=== PATIENT | female | born 1950 | race American Indian/Alaskan Native ===

== ENCOUNTER 2017-04-27 13:26 | Outpatient (CLI) | payer MEDICARE, OTHER ==
--- NOTE | 2017-04-27 16:25 | Mammography Report ---
Screening mammogram: There is a heterogeneous fibroglandular pattern which is somewhat denser in the upper outer left breast than elsewhere in either breast. No focal mass and no architectural distortion noted. Scattered groupings of microcalcifications as well as singular calcifications are present in both breasts. These findings are all unchanged compared to her prior study in March 2015. No currently suspicious findings. CAD used. Impression: Stable breast pattern. Recommendation: Annual mammogram followup. BI-RADS CATEGORY: 2 = Benign ACR BI-RADS MAMMOGRAPHIC CODES: 0 = Needs additional imaging evaluation; 1 = Negative; 2 = Benign; 3 = Probably benign; 4 = Suspicious; 5 = Malignant; 6 = Known biopsy-proven malignancy COMMENT: 1. Dense breast tissue, i.e., adenosis, fibrocystic changes, etc., may obscure an underlying neoplasm. 2. Approximately 10% of cancers are not detected with mammography. 3. A negative mammography report should not delay biopsy if a clinically suspicious mass is present.
== END 2017-04-27 13:27 | disposition home or self-care (01) ==
LOC: MAMMO 13:26
PROVIDERS: ATTEND Family Medicine
DX: Z12.31 Encounter for screening mammogram for malignant neoplasm of breast (principal)
CPT/HCPCS: 77067; G0202

== ENCOUNTER 2019-01-28 18:35 | Inpatient (IN) | payer MEDICARE, OTHER ==
--- NOTE | 2019-01-28 18:43 | Event Note ---
ED Screening Note Date of service: 01/28/19 Time: 18:39 ED Screening Note: This is a 69 y.o. F. that presents to the ER nauseous, numbness on right side of face, headache, and disoriented. Her neighbor think she is having a CVA. Reports changes since 1600 today. This initial assessment/diagnostic orders/clinical plan/treatment(s) is/are subject to change based on patients health status, clinical progression and re- assessment by fellow clinical providers in the ED. Further treatment and workup at subsequent clinical providers discretion. Patient/guardian urged not to elope from the ED as their condition may be serious if not clinically assessed and managed. Initial orders include: Labs, ekg, & CT of head
--- NOTE | 2019-01-28 18:46 | Emergency Department Report ---
ED Neuro Deficit HPI - General Chief Complaint: Neuro Symptoms/Deficit Stated Complaint: R SIDE NUMBNESS/SLURRED SPEECH/DISORIENTATION Time Seen by Provider: 01/28/19 18:45 Source: patient Mode of arrival: Ambulatory Limitations: No Limitations - History of Present Illness Initial Comments: Patient is a 69-year-old female that presents to the ER with complaints of nauseous, numbness on right side of face, headache, and confusion. Patient also complains of difficulty speaking and slurred speech. Patient states she has been off her blood pressure medication for 2 years. Patient states she used to take losartan. Patient denies chest pain shortness of breath. Patient states that her symptoms are worsening. Last known well time 1600 today. -: Sudden Location: speech, left face Presenting Symptoms: Present: Sudden, Severe Headache, Facial Droop/Numbness, Unable to Speak Clearly History of same: No Place: home Severity: severe Quality: numb Improves With: none Worsens With: none On Anticoagulants: No Context: sudden onset Associated Symptoms: confusion, headaches, malise, weakness. denies: chest pain, cough, diaphoresis, fever/chills, loss of appetite, vertigo, seizures, shortness of breath, syncope Treatments Prior to Arrival: none - Related Data Home Medications: Previous Rx's Medication Instructions Recorded Last Taken Type Ondansetron [Zofran Odt] 4 mg PO Q8HR PRN #15 tab.rapdis 09/02/16 Unknown Rx fentaNYL [Fentanyl] 1 each TD Q72HR #5 patch.td72 09/02/16 Unknown Rx oxyCODONE [roxiCODONE] 5 mg PO Q6HR PRN #20 tablet 09/02/16 Unknown Rx Allergies/Adverse Reactions: Allergies Allergy/AdvReac Type Severity Reaction Status Date / Time codeine Allergy HALLUCINATI Verified 09/01/16 18:17 ONS ED Review of Systems ROS: Stated complaint: R SIDE NUMBNESS/SLURRED SPEECH/DISORIENTATION Other details as noted in HPI Constitutional: weakness. denies: chills, fever Eyes: denies: eye pain, eye discharge, vision change ENT: denies: ear pain, throat pain Respiratory: denies: cough, shortness of breath, wheezing Cardiovascular: denies: chest pain, palpitations Endocrine: no symptoms reported Gastrointestinal: nausea. denies: abdominal pain, vomiting, diarrhea Genitourinary: denies: urgency, dysuria, discharge Musculoskeletal: denies: back pain, joint swelling, arthralgia Skin: denies: rash, lesions Neurological: headache, weakness, numbness, confusion Psychiatric: denies: anxiety, depression Hematological/Lymphatic: denies: easy bleeding, easy bruising ED Past Medical Hx - Past Medical History Previous Medical History?: Yes Hx Hypertension: Yes - Surgical History Past Surgical History?: Yes Additional Surgical History: colon surgery. TUBAL LIGATION. HYSTERECTOMY. TONSILLECTOMY - Family History Family history: no significant - Social History Smoking Status: Never Smoker Substance Use Type: None - Medications Home Medications: Home Medications Medication Instructions Recorded Confirmed Last Taken Type Ondansetron [Zofran Odt] 4 mg PO Q8HR PRN #15 tab.rapdis 09/02/16 Unknown Rx fentaNYL [Fentanyl] 1 each TD Q72HR #5 patch.td72 09/02/16 Unknown Rx oxyCODONE [roxiCODONE] 5 mg PO Q6HR PRN #20 tablet 09/02/16 Unknown Rx ED Neuro Physical Exam - General Limitations: No Limitations General appearance: alert, in no apparent distress Suspected Stroke: Yes - Head Head exam: Present: atraumatic, normocephalic - Eye Eye exam: Present: normal appearance, PERRL Pupils: Present: normal accommodation - ENT ENT exam: Present: mucous membranes moist - Neck Neck exam: Present: normal inspection - Respiratory Respiratory exam: Present: normal lung sounds bilaterally. Absent: respiratory distress, wheezes, rales, rhonchi - Cardiovascular Cardiovascular Exam: Present: regular rate, normal rhythm. Absent: systolic murmur, diastolic murmur, rubs, gallop - GI/Abdominal GI/Abdominal exam: Present: soft, normal bowel sounds. Absent: distended, tenderness, guarding - Rectal Rectal exam: Present: deferred - Extremities Exam Extremities exam: Present: normal inspection, full ROM - Back Exam Back exam: Present: normal inspection - Neurological Exam Neurological exam: Present: alert, oriented X3 - NIHSS Assessment Interval: Baseline 1a. Level of Consciousness: alert/keenly responsive 1b. LOC Questions: answers both correctly 1c. LOC Commands: performs tasks correctly 2. Best Gaze: normal 3. Visual: no visual loss 4. Facial Palsy: normal symmetrical movement 5b. Motor Arm Right: no drift 5a. Motor Arm Left: no drift 6a. Motor Leg Left: no drift 6b. Motor Leg Right: no drift 7. Limb Ataxia: absent 8. Sensory: normal 9. Best Language: mild/moderate aphasia 10. Dysarthria: mild/moderate dysarthria 11. Extinction/Inattention: no abnormality Total Score: 2 Stroke Severity: Minor Stroke - Psychiatric Psychiatric exam: Present: normal affect, normal mood - Skin Skin exam: Present: warm, dry, intact, normal color. Absent: rash ED Course Vital Signs 01/28/19 01/28/19 01/28/19 18:39 19:08 19:15 Temperature 97.8 F Pulse Rate 69 58 L Respiratory 20 22 Rate Blood Pressure 170/82 209/84 O2 Sat by Pulse 99 98 99 Oximetry 01/28/19 01/28/19 01/28/19 19:30 19:45 20:00 Temperature Pulse Rate 59 L 80 85 Respiratory 28 H 20 18 Rate Blood Pressure 201/110 202/86 199/76 O2 Sat by Pulse 100 100 99 Oximetry 01/28/19 01/28/19 01/28/19 20:15 20:49 21:01 Temperature Pulse Rate 83 86 97 H Respiratory 15 13 Rate Blood Pressure 199/76 169/70 154/84 O2 Sat by Pulse 100 97 Oximetry 01/28/19 01/28/19 01/28/19 21:15 21:30 21:45 Temperature Pulse Rate 82 89 76 Respiratory 16 13 13 Rate Blood Pressure 174/82 126/73 139/89 O2 Sat by Pulse 97 95 95 Oximetry 01/28/19 01/28/19 01/28/19 21:55 22:00 22:15 Temperature Pulse Rate 82 76 Respiratory 18 15 15 Rate Blood Pressure 159/85 142/81 O2 Sat by Pulse 90 95 Oximetry 01/28/19 01/28/19 01/28/19 22:25 22:30 22:45 Temperature Pulse Rate 75 Respiratory 18 11 L 18 Rate Blood Pressure 136/75 125/63 O2 Sat by Pulse 88 96 Oximetry 01/28/19 01/28/19 01/28/19 23:00 23:15 23:30 Temperature Pulse Rate Respiratory 17 13 15 Rate Blood Pressure 138/70 123/86 148/76 O2 Sat by Pulse 92 97 93 Oximetry 01/28/19 01/29/19 01/29/19 23:45 00:00 00:15 Temperature Pulse Rate Respiratory 19 17 18 Rate Blood Pressure 133/70 123/78 114/69 O2 Sat by Pulse 90 89 96 Oximetry 01/29/19 01/29/19 01/29/19 00:30 00:45 01:01 Temperature Pulse Rate 53 L 67 Respiratory 17 14 16 Rate Blood Pressure 114/75 126/79 115/78 O2 Sat by Pulse 96 97 96 Oximetry 01/29/19 01:15 Temperature Pulse Rate 54 L Respiratory 16 Rate Blood Pressure 168/77 O2 Sat by Pulse 93 Oximetry - Reevaluation(s) Reevaluation #1: I discussed all results with patient. Patient will be admitted to the hospitalist service. Patient agrees with plan of care and admission. Blood pressure has improved. She'll be given Dilaudid for her headache. 01/28/19 21:35 - Consultations Consultation #1: Neurologist consult. 01/28/19 18:35 Neurologist does not recommend TPA and recommends admission for further evaluation and treatment. 01/28/19 19:35 Consultation #2: Hospitalist consult for admission. Hospitalist to admit patient and assume care of patient. 01/28/19 21:36 - Lab Data Result diagrams: 01/28/19 19:15 01/28/19 19:15 Lab Results 01/28/19 01/28/19 01/28/19 Range/Units 19:15 19:15 19:15 WBC 7.4 (4.5-11.0) K/mm3 RBC 5.52 H (3.65-5.03) M/mm3 Hgb 15.2 H (10.1-14.3) gm/dl Hct 45.1 H (30.3-42.9) % MCV 82 (79-97) fl MCH 28 (28-32) pg MCHC 34 (30-34) % RDW 14.2 (13.2-15.2) % Plt Count 336 (140-440) K/mm3 Lymph % (Auto) 35.9 H (13.4-35.0) % [place] % (Auto) 7.3 (0.0-7.3) % Eos % (Auto) 1.3 (0.0-4.3) % Baso % (Auto) 1.4 (0.0-1.8) % Lymph # 2.6 (1.2-5.4) K/mm3 [place] # 0.5 (0.0-0.8) K/mm3 Eos # 0.1 (0.0-0.4) K/mm3 Baso # 0.1 (0.0-0.1) K/mm3 Seg Neutrophils % 54.1 (40.0-70.0) % Seg Neutrophils # 4.0 (1.8-7.7) K/mm3 PT 12.5 (12.2-14.9) Sec. INR 0.96 (0.87-1.13) APTT 24.6 (24.2-36.6) Sec. Thrombin Time (15.1-19.6) Sec. Sodium 139 (137-145) mmol/L Potassium 4.7 (3.6-5.0) mmol/L Chloride 98.6 (98-107) mmol/L Carbon Dioxide 24 (22-30) mmol/L Anion Gap 21 mmol/L BUN 16 (7-17) mg/dL Creatinine 1.0 (0.7-1.2) mg/dL Estimated GFR > 60 ml/min BUN/Creatinine Ratio 16 % Glucose 90 (65-100) mg/dL Calcium 10.6 H (8.4-10.2) mg/dL Total Bilirubin (0.1-1.2) mg/dL Direct Bilirubin (0-0.2) mg/dL Indirect Bilirubin mg/dL AST (5-40) units/L ALT (7-56) units/L Alkaline Phosphatase (35-129) units/L Troponin T < 0.010 (0.00-0.029) ng/mL Total Protein (6.3-8.2) g/dL Albumin (3.9-5) g/dL Albumin/Globulin Ratio % Plasma/Serum Alcohol (0-0.07) % 01/28/19 01/28/19 01/28/19 Range/Units 19:15 19:15 19:15 WBC (4.5-11.0) K/mm3 RBC (3.65-5.03) M/mm3 Hgb (10.1-14.3) gm/dl Hct (30.3-42.9) % MCV (79-97) fl MCH (28-32) pg MCHC (30-34) % RDW (13.2-15.2) % Plt Count (140-440) K/mm3 Lymph % (Auto) (13.4-35.0) % [place] % (Auto) (0.0-7.3) % Eos % (Auto) (0.0-4.3) % Baso % (Auto) (0.0-1.8) % Lymph # (1.2-5.4) K/mm3 [place] # (0.0-0.8) K/mm3 Eos # (0.0-0.4) K/mm3 Baso # (0.0-0.1) K/mm3 Seg Neutrophils % (40.0-70.0) % Seg Neutrophils # (1.8-7.7) K/mm3 PT (12.2-14.9) Sec. INR (0.87-1.13) APTT (24.2-36.6) Sec. Thrombin Time 16.8 (15.1-19.6) Sec. Sodium (137-145) mmol/L Potassium (3.6-5.0) mmol/L Chloride (98-107) mmol/L Carbon Dioxide (22-30) mmol/L Anion Gap mmol/L BUN (7-17) mg/dL Creatinine (0.7-1.2) mg/dL Estimated GFR ml/min BUN/Creatinine Ratio % Glucose (65-100) mg/dL Calcium (8.4-10.2) mg/dL Total Bilirubin 0.40 (0.1-1.2) mg/dL Direct Bilirubin < 0.2 (0-0.2) mg/dL Indirect Bilirubin 0.2 mg/dL AST 31 (5-40) units/L ALT 14 (7-56) units/L Alkaline Phosphatase 88 (35-129) units/L Troponin T (0.00-0.029) ng/mL Total Protein 9.1 H (6.3-8.2) g/dL Albumin 5.3 H (3.9-5) g/dL Albumin/Globulin Ratio 1.4 % Plasma/Serum Alcohol < 0.01 (0-0.07) % - EKG Data -: EKG Interpreted by Me EKG shows normal: sinus rhythm, axis, intervals, QRS complexes, ST-T waves Rate: normal - Radiology Data Radiology results: report reviewed, image reviewed interpreted by me: Negative head CT or acute finding Report reviewed and radiologist reads as a negative head CT for acute findings. CTA neck with and without contrast CLINICAL HISTORY: Weakness, cerebrovascular accident. Technique: Multiple contiguous postcontrast axial CT images of the neck were obtained at 0.63 mm intervals. 3 plane MIP reconstructions were produced. Precontrast localizing images were also performed. All CT scans at this location are performed using the CT dose reduction for ALARA by means of automated exposure control. FINDINGS: There is atherosclerotic plaque involving the proximal right ICA with mild, 10-20% stenosis by NASCET criteria. Otherwise, the visualized right carotid arteries are unremarkable. There is minimal plaque involving the proximal left ICA without significant stenosis at by NASCET criteria. There is also mild plaque along the mid to distal left common carotid artery without significant stenosis. 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 The right vertebral artery is dominant without significant stenosis at. There is a small focus of calc ification adjacent to the origin. This also mild calcification near the origin of the left subclavian artery without significant stenosis. There is a disc protrusion at projected the C5-6 level which appears to mildly deform the ventral cord. All CT scans at this location are performed using the CT dose reduction for ALARA by means of automated exposure control. IMPRESSION: There is milder atherosclerotic plaque involving proximal right ICA with mild, 10-20% stenosis by NASCET criteria. 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 CTA head with and without IV contrast. CLINICAL HISTORY: Weakness, possible cerebrovascular accident. Technique: Multiple contiguous postcontrast CT images of the head were obtained at 0.63 mm intervals.3 plane MIP reconstructions were obtained. Precontrast localizing images were also performed. CT scans at this location are performed using the CT dose reduction for ALARA by means of automated exposure control. FINDINGS: No previous exams available for comparison. There is small caliber of the distal left vertebral artery which appears reflect developmental hypoplasia. 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 There is no significant focal stenosis involving the anterior circulation vessels by NASCET criteria. There is no clear CT evidence of intracranial aneurysm. The dural venous sinuses opacify with contrast. 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 There is no significant focal stenosis involving intracranial vessels. The study was specified as stat and dictated on an emergent basis once fully completed - Medical Decision Making Patient is a 69-year-old female presents emergency room with neurologic complaints. Patient had a code stroke ran. Patient sees to the head negative. Patient had his CT A of the head and neck and was negative for large vessel occlusion. Neurology was consult and early in the patient's ER stay. Patient's labs unremarkable. Patient found to have elevated blood pressure and placed on a nicardipine drip. Patient's EKG reviewed. [facility]. - Differential Diagnosis CVA. Encephalopathy. Hypertensive emergency. Critical Care Time: Yes Critical care attestation.: If time is entered above; I have spent that time in minutes in the direct care of this critically ill patient, excluding procedure time. Critical Care Time: 45 minutes ED Disposition Clinical Impression: Encephalopathy, Weakness, Hypertensive urgency, malignant, Slurred speech, Difficulty speaking, Numbness of face Headache Qualifiers: Headache type: unspecified Headache chronicity pattern: acute headache Intractability: not intractable Qualified Code(s): R51 - Headache Disposition: DC-09 OP ADMIT IP TO THIS HOSP Is pt being admited?: Yes Does the pt Need Aspirin: No Condition: Critical Time of Disposition: 21:37
--- NOTE | 2019-01-28 19:05 | Emergency Department Report ---
ED Neuro Deficit HPI - General Chief Complaint: Neuro Symptoms/Deficit Stated Complaint: R SIDE NUMBNESS/SLURRED SPEECH/DISORIENTATION Time Seen by Provider: 01/28/19 18:45 Source: patient Mode of arrival: Ambulatory Limitations: No Limitations - History of Present Illness Initial Comments: [facility] Date of service: 01/28/2019 Impression: 69 year old female who presents with right side tingling and altered mental status. Patient's presentation is more consistent with a hypertensive encephalopathy or possibly PRES. Not a tpa candidate due to: NIHSS of 1 for mild right leg drift and symptoms more consistent with a hypertensive encephalopathy or PRES. Does not meet LVO screening criteria (no aphasia, neglect, gaze deviation, dense hemiparesis, or visual field deficits on exam), therefore advanced thrombectomy is not indicated Comments: Door Time: 18:35 [employer] contacted: 18:48 [employer] at bedside: 18:55 NIHSS assessment start time (time the consultation begins): 19:00 Last known well time (LKW): 16:00 Recommendations: CTA head and neck to assess posterior circulation Start antiplatelet if no obvious contraindication Stroke protocol admission/ orderset suggested with placement on stroke floor tele monitoring Bedside swallow evaluation HOB less than 30 degrees IV Fluid hydration with NS Euglycemia avoid hyperthermia, PRN acetaminophen dvt ppx Consider inpatient neurology consultation Discussed with ED MD Please call with questions CC: STroke alert History of Present Illness Patient is a69 year old female who presents to the ED because of right side tingling. Patient states she was outside talking with her friend when she sudd enly became very confused and had tingling and numbness on her right side. On exam patient appeared very encephalopathic but had stuttering speech. She was fully oriented and did not have any focal findings except for difficulty lifting her right leg. She did not have any noticeable aphasia and she reported equal sensation throughout. Diagnostic: CT Brain w/o contrast -- radiology read -- no acute process (images unavailable for viewing) Exam: Mental Status: Awake, alert, oriented Naming: Intact Repetition: Intact Speech: fluent Cranial Nerves: Pupils: Equal round and reactive to light Extraocular movements: Intact in all cardinal gaze Ptosis: Absent Visual palacio: Intact to finger counting Facial sensation: Intact to pin and light touch Facial movements: Intact and symmetric Motor Exam: right leg drift -- will hold with knee up against gravity without falling to the side. Tremor/Abnormal Movements: Resting tremor: Absent Intention tremor: Absent Postural tremor: Absent Sensory Exam: Light touch: Intact Pinprick: Intact Coordination: Finger to nose: Intact Heel to ewing: Intact NIHSS score: 1 Medical Decision Making: - Extensive number of diagnosis or management options are considered above. - Extensive amount of complex data reviewed. - High risk of complication and/or morbidity or mortality are associated with differential diagnostic considerations above. - There may be Uncertain outcome and increased probability of prolonged f unctional impairment or high probability of severe prolonged functional impairment associated with some of these differential diagnosis. Medical Data Reviewed: 1.Data reviewed include clinical labs, radiology,Medical Tests; 2.Tests results discussed w/performing or interpreting physician; 3.Obtaining/reviewing old medical records; 4.Obtaining case history from another source; 5.Independent review of image, tracing or specimen. Patient was informed the Neurology Consult would happen via TeleHealth consult by way of interactive audio and video telecommunications and consented to receiving care in this manner. - Related Data Home Medications: Previous Rx's Medication Instructions Recorded Last Taken Type Ondansetron [Zofran Odt] 4 mg PO Q8HR PRN #15 tab.rapdis 09/02/16 Unknown Rx fentaNYL [Fentanyl] 1 each TD Q72HR #5 patch.td72 09/02/16 Unknown Rx oxyCODONE [roxiCODONE] 5 mg PO Q6HR PRN #20 tablet 09/02/16 Unknown Rx Allergies/Adverse Reactions: Allergies Allergy/AdvReac Type Severity Reaction Status Date / Time codeine Allergy HALLUCINATI Verified 09/01/16 18:17 ONS ED Review of Systems ROS: Stated complaint: R SIDE NUMBNESS/SLURRED SPEECH/DISORIENTATION Other details as noted in HPI ED Past Medical Hx - Past Medical History Previous Medical History?: Yes Hx Hypertension: Yes - Surgical History Past Surgical History?: Yes Additional Surgical History: colon surgery. TUBAL LIGATION. HYSTERECTOMY. TONSILLECTOMY - Social History Smoking Status: Never Smoker Substance Use Type: None - Medications Home Medications: Home Medications Medication Instructions Recorded Confirmed Last Taken Type Ondansetron [Zofran Odt] 4 mg PO Q8HR PRN #15 tab.rapdis 09/02/16 Unknown Rx fentaNYL [Fentanyl] 1 each TD Q72HR #5 patch.td72 09/02/16 Unknown Rx oxyCODONE [roxiCODONE] 5 mg PO Q6HR PRN #20 tablet 09/02/16 Unknown Rx ED Neuro Physical Exam - General Limitations: No Limitations Suspected Stroke: Yes - NIHSS Assessment Interval: Baseline 1a. Level of Consciousness: alert/keenly responsive 1b. LOC Questions: answers both correctly 1c. LOC Commands: performs tasks correctly 2. Best Gaze: normal 3. Visual: no visual loss 4. Facial Palsy: normal symmetrical movement 5b. Motor Arm Right: no drift 5a. Motor Arm Left: no drift 6a. Motor Leg Left: no drift 6b. Motor Leg Right: drift 7. Limb Ataxia: absent 8. Sensory: normal 9. Best Language: no aphasia 10. Dysarthria: normal 11. Extinction/Inattention: no abnormality Total Score: 1 Stroke Severity: Minor Stroke ED Course Vital Signs 01/28/19 18:39 Temperature 97.8 F Pulse Rate 69 Respiratory 20 Rate Blood Pressure 170/82 O2 Sat by Pulse 99 Oximetry - Lab Data Result diagrams: 01/28/19 19:15 01/28/19 19:15 Lab Results 01/28/19 01/28/19 01/28/19 Range/Units 19:15 19:15 19:15 WBC 7.4 (4.5-11.0) K/mm3 RBC 5.52 H (3.65-5.03) M/mm3 Hgb 15.2 H (10.1-14.3) gm/dl Hct 45.1 H (30.3-42.9) % MCV 82 (79-97) fl MCH 28 (28-32) pg MCHC 34 (30-34) % RDW 14.2 (13.2-15.2) % Plt Count 336 (140-440) K/mm3 Lymph % (Auto) 35.9 H (13.4-35.0) % [place] % (Auto) 7.3 (0.0-7.3) % Eos % (Auto) 1.3 (0.0-4.3) % Baso % (Auto) 1.4 (0.0-1.8) % Lymph # 2.6 (1.2-5.4) K/mm3 [place] # 0.5 (0.0-0.8) K/mm3 Eos # 0.1 (0.0-0.4) K/mm3 Baso # 0.1 (0.0-0.1) K/mm3 Seg Neutrophils % 54.1 (40.0-70.0) % Seg Neutrophils # 4.0 (1.8-7.7) K/mm3 PT 12.5 (12.2-14.9) Sec. INR 0.96 (0.87-1.13) APTT 24.6 (24.2-36.6) Sec. Thrombin Time (15.1-19.6) Sec. Sodium 139 (137-145) mmol/L Chloride 98.6 (98-107) mmol/L Carbon Dioxide 24 (22-30) mmol/L BUN 16 (7-17) mg/dL Creatinine 1.0 (0.7-1.2) mg/dL Estimated GFR > 60 ml/min BUN/Creatinine Ratio 16 % Glucose 90 (65-100) mg/dL Calcium 10.6 H (8.4-10.2) mg/dL Troponin T < 0.010 (0.00-0.029) ng/mL Plasma/Serum Alcohol (0-0.07) % 01/28/19 01/28/19 Range/Units 19:15 19:15 WBC (4.5-11.0) K/mm3 RBC (3.65-5.03) M/mm3 Hgb (10.1-14.3) gm/dl Hct (30.3-42.9) % MCV (79-97) fl MCH (28-32) pg MCHC (30-34) % RDW (13.2-15.2) % Plt Count (140-440) K/mm3 Lymph % (Auto) (13.4-35.0) % [place] % (Auto) (0.0-7.3) % Eos % (Auto) (0.0-4.3) % Baso % (Auto) (0.0-1.8) % Lymph # (1.2-5.4) K/mm3 [place] # (0.0-0.8) K/mm3 Eos # (0.0-0.4) K/mm3 Baso # (0.0-0.1) K/mm3 Seg Neutrophils % (40.0-70.0) % Seg Neutrophils # (1.8-7.7) K/mm3 PT (12.2-14.9) Sec. INR (0.87-1.13) APTT (24.2-36.6) Sec. Thrombin Time 16.8 (15.1-19.6) Sec. Sodium (137-145) mmol/L Chloride (98-107) mmol/L Carbon Dioxide (22-30) mmol/L BUN (7-17) mg/dL Creatinine (0.7-1.2) mg/dL Estimated GFR ml/min BUN/Creatinine Ratio % Glucose (65-100) mg/dL Calcium (8.4-10.2) mg/dL Troponin T (0.00-0.029) ng/mL Plasma/Serum Alcohol < 0.01 (0-0.07) % Critical care attestation.: If time is entered above; I have spent that time in minutes in the direct care of this critically ill patient, excluding procedure time. ED Disposition Clinical Impression: Encephalopathy Disposition: 09 OP ADMIT IP TO THIS HOSP Is pt being admited?: Yes Does the pt Need Aspirin: Yes Condition: Stable Referrals: RALPH SERRANO MD [Primary Care Provider] - 3-5 Days
[2019-01-28 19:26] LABS: Basophils # (Auto) 0.1 K/mm3 (0.0-0.1); Basophils % (Auto) 1.4 % (0.0-1.8); Eosinophils # (Auto) 0.1 K/mm3 (0.0-0.4); Eosinophils % (Auto) 1.3 % (0.0-4.3); Hematocrit 45.1 % (30.3-42.9); Hemoglobin 15.2 gm/dl (10.1-14.3); Lymphocytes # (Auto) 2.6 K/mm3 (1.2-5.4); Lymphocytes % (Auto) 35.9 % (13.4-35.0); Mean Corpuscular HGB Conc 34 % (30-34); Mean Corpuscular Volume 82 fl (79-97); Monocytes # (Auto) 0.5 K/mm3 (0.0-0.8); Monocytes % (Auto) 7.3 % (0.0-7.3); Platelet Count 336 K/mm3 (140-440); Red Blood Count 5.52 M/mm3 (3.65-5.03); Red Cell Distribution Width 14.2 % (13.2-15.2)
[2019-01-28 19:36] LABS: INR 0.96 (0.87-1.13)
[2019-01-28 19:37] LABS: Partial Thromboplastin Time 24.6 Sec. (24.2-36.6)
[2019-01-28 19:47] LABS: BUN/Creatinine Ratio 16; Blood Urea Nitrogen 16 mg/dL (7-17); Calcium 10.6 mg/dL (8.4-10.2); Hemolysis Index 143
--- NOTE | 2019-01-28 19:47 | Cat Scan Report ---
CT head without contrast CLINICAL HISTORY: Cerebrovascular accident. FINDINGS: No previous CT exams available for comparison. The brain appears to demonstrate appropriate attenuation for age. There is no clear CT evidence of acute intracranial hemorrhage or significant m ass effect at. There is mild cerebral atrophy. The ventricular system is correspondingly appropriate in size and configuration. The visualized paranasal sinuses are clear. All CT scans at this location are performed using the CT dose reduction for ALARA by means of automated exposure control. IMPRESSION: There is no CT evidence of acute intracranial process. The findings were called emergently to the ER at the time the study was being completed per the code stroke protocol. Signer Name: Calderon De La Cruz MD Signed: 01/28/2019 7:43 PM Workstation Name: [id number]
[2019-01-28 19:51] LABS: Alanine Aminotransferase 14 units/L (7-56); Albumin 5.3 g/dL (3.9-5)
[2019-01-28 19:53] LABS: Bilirubin,Direct < 0.2 mg/dL (0-0.2)
[2019-01-28] MEDS ORDERED: CARDENE 50 MG in NACL 0.9% 250ML 230 ML IV SCH (20:00)
[2019-01-28] MEDS ORDERED: DILAUDID ONE (21:23)
[2019-01-28] MEDS ORDERED: DILAUDID IV ONE (21:36)
--- NOTE | 2019-01-28 21:53 | Cat Scan Report ---
CTA neck with and without contrast CLINICAL HISTORY: Weakness, cerebrovascular accident. Technique: Multiple contiguous postcontrast axial CT images of the neck were obtained at 0.63 mm inte rvals. 3 plane MIP reconstructions were produced. Precontrast localizing images were also performed. All CT scans at this location are performed using the CT dose reduction for ALARA by means of automat ed exposure control. FINDINGS: There is atherosclerotic plaque involving the proximal right ICA with mild, 10-20% stenosis by NASCET criteria. Otherwise, the visualized right carotid arteries are unremarkable. There is minimal plaque involving the proximal left ICA without significant stenosis at by NASCET cri teria. There is also mild plaque along the mid to distal left common carotid artery without significa nt stenosis. 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 The right vertebral artery is meliton nant without significant stenosis at. There is a small focus of calcification adjacent to the origin. This also mild calcification near the origin of the left subclavian artery without significant steno sis. There is a disc protrusion at projected the C5-6 level which appears to mildly deform the ventral cor d. All CT scans at this location are performed using the CT dose reduction for ALARA by means of auto mated exposure control. IMPRESSION: There is milder atherosclerotic plaque involving proximal right ICA with mild, 10-20% stenosis by DANDY CET criteria. 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 The study was specified as stat and dictated emergently once fully completed. Signer Name: Calderon De La Cruz MD Signed: 01/28/2019 9:48 PM Workstation Name: [id number]
[2019-01-28] MEDS ORDERED: ZOFRAN IV ONE (21:58)
--- NOTE | 2019-01-28 22:00 | Cat Scan Report ---
CTA head with and without IV contrast. CLINICAL HISTORY: Weakness, possible cerebrovascular accident. Technique: Multiple contiguous postcontrast CT images of the head were obtained at 0.63 mm intervals. 3 plane MIP reconstructions were obtained. Precontrast localizing images were also performed. CT scan s at this location are performed using the CT dose reduction for [employer] by means of automated exposure control. FINDINGS: No previous exams available for comparison. There is small caliber of the distal left verte bral artery which appears reflect developmental hypoplasia. 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 There is no significant focal stenosis involving the anter ior circulation vessels by NASCET criteria. There is no clear CT evidence of intracranial aneurysm. T he dural venous sinuses opacify with contrast. 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 There is no significant focal stenosis involving intracranial vessels. The study was specified as stat and dictated on an emergent basis once fully completed. Signer Name: Calderon De La Cruz MD Signed: 01/28/2019 9:55 PM Workstation Name: [id number]
--- NOTE | 2019-01-28 22:14 | History and Physical Report ---
History of Present Illness Date of examination: 01/28/19 History of present illness: 69-year-old history of hypertension, colon cancer comes emergency room with complaints of slurred speech, generalized weakness that lasted for about an hour. Also complaining of headache, bitemporal, she has not taken her antihypertensive for 2 weeks. She was started on a Cardene drip in the emergency room Review Of Systems: Constitutional: no weight loss, fever, chills Ears, eyes, nose, mouth and throat: no nasal congestion, no nasal discharge, no sinus pressure, blurry vision, diplopia Neck: No neck pain or rigidity. Cardiovascular: No palpitations, chest pain Respiratory: No shortness of breath, cough Gastrointestinal: No hematochezia, abdominal pain Genitourinary : no dysuria, frequency , hematuria Musculoskeletal: no muscle ache , joint pain Integumentary: no rash, no pruritis Neurological: no parathesias, focal weakness Endocrine: no cold or heat intolerance, no polyuria or polydipsia Hematologic/Lymphatic: no easy bruising, no easy bleeding, no gland swelling Allergic/Immunologic: no urticaria, no angioedema. PAST MEDICAL HISTORY:hypertension, diabetes, colon cancer PAST SURGICAL HISTORY: tubal ligation, hysterectomy, tonsillectomy FAMILY HISTORY:hypertension, diabetes SOCIAL HISTORY: Denies tobacco, drugs, social alcohol Medications and Allergies Allergies Allergy/AdvReac Type Severity Reaction Status Date / Time codeine Allergy HALLUCINATI Verified 09/01/16 18:17 ONS Home Medications Medication Instructions Recorded Confirmed Last Taken Type Ondansetron [Zofran Odt] 4 mg PO Q8HR PRN #15 tab.rapdis 09/02/16 Unknown Rx fentaNYL [Fentanyl] 1 each TD Q72HR #5 patch.td72 09/02/16 Unknown Rx oxyCODONE [roxiCODONE] 5 mg PO Q6HR PRN #20 tablet 09/02/16 Unknown Rx Active Meds: Active Medications Nicardipine HCl 50 mg/ Sodium (Chloride) 250 mls @ 25 mls/hr IV TITR MAN; Protocol Exam - Physical Exam Narrative exam: General Apperance: The patient sitting in bed no acute distress HEENT: Normocephalic, atraumatic. Pupils equally round and reactive to light, extraocular movement intact, and no sclericterus or JVD or thyromegaly or n odule. Neck supple, no carotid bruit, mucous membranes moist, no exudate or erythema Heart: S1-S2, regular is rhythm Lungs: Clear to auscultation bilaterally, breathing comfortable Abdomen: Positive bowel sounds, soft, nontender, nondistended, no organomegaly Extremities: No edema cyanosis clubbing Skin: no rash, nodule, warm and dry Neuro:CN 2 -12 intact, motry/sensory intact, speech is fluent - Constitutional Vitals: Temp Pulse Resp BP Pulse Ox 97.8 F 69 18 170/82 99 01/28/19 18:39 01/28/19 18:39 01/28/19 21:55 01/28/19 18:39 01/28/19 18:39 Results - Labs CBC & Chem 7: 01/28/19 19:15 01/28/19 19:15 Labs: Abnormal lab results 01/28/19 01/28/19 01/28/19 Range/Units 19:15 19:15 19:15 RBC 5.52 H (3.65-5.03) M/mm3 Hgb 15.2 H (10.1-14.3) gm/dl Hct 45.1 H (30.3-42.9) % Lymph % (Auto) 35.9 H (13.4-35.0) % Calcium 10.6 H (8.4-10.2) mg/dL Total Protein 9.1 H (6.3-8.2) g/dL Albumin 5.3 H (3.9-5) g/dL - Imaging and Cardiology EKG: image reviewed CT Scan - head: report reviewed Assessment and Plan CTA head and neck reviewed Assessment TIA Hypertension urgency, maligament History of colon cancer Plan Admit to medicine Obtain MRI of the head, echo Start aspirin, statin, acute cardene drip Dresser Tender neurology, physical and occupational therapy, critical care DVT prophylaxis
[2019-01-28] MEDS ORDERED: TYLENOL PO PRN (22:35)
[2019-01-28] MEDS ORDERED: SODIUM CHLORIDE FLUSH SYRINGE 10 ML IV PRN (22:35)
[2019-01-28] MEDS ORDERED: PHENERGAN PR PRN (22:35)
[2019-01-28] MEDS ORDERED: MILK OF MAGNESIA PO PRN (22:35)
[2019-01-28] MEDS ORDERED: DULCOLAX PR PRN (22:35)
[2019-01-28] MEDS ORDERED: ZOFRAN IV PRN (22:35)
[2019-01-28] MEDS ORDERED: PHENERGAN PR ONE (23:59)
[2019-01-29] MEDS ORDERED: MORPHINE IV ONE (02:09)
[2019-01-29] MEDS ORDERED: FLEXERIL PO PRN (02:22)
[2019-01-29 05:30] LABS: Chol/HDL Ratio 3.52 %
[2019-01-29] MEDS ORDERED: ULTRAM PO PRN (05:37)
[2019-01-29] MEDS ORDERED: LOVENOX SUB-Q SCH (10:00)
[2019-01-29] MEDS: ASPIRIN PO SCH (10:53)
[2019-01-29] MEDS: LOVENOX SUB-Q SCH (10:53)
--- NOTE | 2019-01-29 13:00 | Progress Note ---
Subjective Date of service: 01/29/19 Interval history: Thanks for consult I did not see lesion in the face or brain that potentially may have caused the symptoms therefore suspect elevated blood pressure alone responsible for this problem did speak to family I did dictated a full note MRI to careful review is normal Objective - Vital Sign Vital Signs - 12hr 01/29/19 01/29/19 01/29/19 01:01 01:15 01:30 Temperature Pulse Rate 67 54 L Pulse Rate [ 58 L Apical] Respiratory 16 16 18 Rate Blood Pressure 115/78 168/77 O2 Sat by Pulse 96 93 98 Oximetry 01/29/19 01/29/19 01/29/19 01:36 01:40 01:50 Temperature Pulse Rate 63 60 53 L Pulse Rate [ Apical] Respiratory 22 13 Rate Blood Pressure 151/69 O2 Sat by Pulse Oximetry 01/29/19 01/29/19 01/29/19 02:00 02:10 02:20 Temperature Pulse Rate 53 L 52 L 81 Pulse Rate [ Apical] Respiratory 13 12 20 Rate Blood Pressure 151/69 154/70 154/70 O2 Sat by Pulse Oximetry 01/29/19 01/29/19 01/29/19 02:29 02:30 02:40 Temperature 98.1 F Pulse Rate 70 51 L Pulse Rate [ Apical] Respiratory 11 L 10 L Rate Blood Pressure 154/70 150/71 O2 Sat by Pulse Oximetry 01/29/19 01/29/19 01/29/19 02:51 03:01 03:11 Temperature Pulse Rate 54 L 55 L 57 L Pulse Rate [ Apical] Respiratory 10 L 14 10 L Rate Blood Pressure 151/69 128/78 150/71 O2 Sat by Pulse Oximetry 01/29/19 01/29/19 01/29/19 03:21 03:31 03:41 Temperature Pulse Rate 55 L 54 L 56 L Pulse Rate [ Apical] Respiratory 10 L 10 L 10 L Rate Blood Pressure 131/65 131/65 131/65 O2 Sat by Pulse Oximetry 01/29/19 01/29/19 01/29/19 03:51 04:01 04:11 Temperature Pulse Rate 51 L 54 L 52 L Pulse Rate [ Apical] Respiratory 9 L 10 L 9 L Rate Blood Pressure 131/65 140/68 140/68 O2 Sat by Pulse Oximetry 01/29/19 01/29/19 01/29/19 04:21 04:31 04:41 Temperature Pulse Rate 52 L 49 L 52 L Pulse Rate [ Apical] Respiratory 8 L 8 L 8 L Rate Blood Pressure 140/68 125/65 140/68 O2 Sat by Pulse Oximetry 01/29/19 01/29/19 01/29/19 04:51 05:01 05:11 Temperature Pulse Rate 52 L 54 L 52 L Pulse Rate [ Apical] Respiratory 9 L 9 L 9 L Rate Blood Pressure 140/68 140/68 110/55 O2 Sat by Pulse Oximetry 01/29/19 01/29/19 01/29/19 05:20 05:21 05:31 Temperature Pulse Rate 59 L 52 L Pulse Rate [ 52 L Apical] Respiratory 18 9 L 9 L Rate Blood Pressure 110/55 107/49 O2 Sat by Pulse 99 Oximetry 01/29/19 01/29/19 01/29/19 05:41 05:51 06:01 Temperature Pulse Rate 50 L 50 L 52 L Pulse Rate [ Apical] Respiratory 8 L 7 L 11 L Rate Blood Pressure 107/49 110/55 110/55 O2 Sat by Pulse Oximetry 01/29/19 01/29/19 01/29/19 06:11 06:21 06:31 Temperature Pulse Rate 48 L 46 L 47 L Pulse Rate [ Apical] Respiratory 9 L 8 L 8 L Rate Blood Pressure 110/55 125/55 125/55 O2 Sat by Pulse Oximetry 01/29/19 01/29/19 01/29/19 06:41 06:50 07:10 Temperature 98.0 F Pulse Rate 46 L 47 L 46 L Pulse Rate [ Apical] Respiratory 9 L 9 L 18 Rate Blood Pressure 117/58 125/55 146/66 O2 Sat by Pulse 96 Oximetry 01/29/19 01/29/19 07:59 10:00 Temperature Pulse Rate Pulse Rate [ 47 L Apical] Respiratory 18 Rate Blood Pressure O2 Sat by Pulse 96 94 Oximetry - Laboratory Findings CBC and BMP: 01/28/19 19:15 01/28/19 19:15 Abnormal Lab Findings: Abnormal Labs 01/28/19 01/28/19 01/28/19 19:15 19:15 19:15 RBC 5.52 H Hgb 15.2 H Hct 45.1 H Lymph % (Auto) 35.9 H Calcium 10.6 H Total Protein 9.1 H Albumin 5.3 H Cholesterol LDL Cholesterol Direct 01/29/19 03:53 RBC Hgb Hct Lymph % (Auto) Calcium Total Protein Albumin Cholesterol 201 H LDL Cholesterol Direct 143 H
--- NOTE | 2019-01-29 14:47 | Progress Note ---
Assessment and Plan Assessment and plan: Patient is a 69 yo woman with a history of hypertension and dyslipidemia who presented to [facility] ED with slurred speech and generalized weakness. She has not taken her antihypertensives for 2-3 weeks because [id number] in [place] is out of the Losartan hct 50/12.5. I called and spoke with the pharmacist. The pharmacy is still out of the losartan hct 50/12.5 but they do have the individual losartan and hct available. I inquired why the pharmacy did not notify the PCP or give her the option of taking the separate pills, they did not document why per pharmacist. Patient unable to take Lisinopril due to cough. She presented to the hospital with bp of 201/110 heart 59. She was started on IV cardene drip and admitted to the hospital, to control the bp. TIA associated with uncontrolled hypertension. MRI negative for acute stroke, read by Neurologist Dr. Butcher, treat with asa and statin. Malignant hypertension: treat with antihypertensives Bradycardia: reviewed ECHO, HR as low as 47, will consult Cardiology Dyslipidemia: on zocor 10mg/d will increase dispostion: continue inpatient tele, monitor tele overnight, consult Cardiology History Interval history: Patient was seen and examined. Follow-up on current diagnosis of slurred speech. No overnight events reported to me. Patient denies any chest pain, shortness breath, nausea/vomiting or severe headaches. Imaging, nursing note, chart, labs and old chart reviewed. Discussed with patient and son at bedside Hospitalist Physical - Physical exam Narrative exam: Gen: WDWN, NAD, Awake, Alert, Orientated HEENT: NCAT, EOMI, PERRL, OP Clear Neck: supple, no adenopathy, no thyromegaly, no JVD CVS/Heart: bradycardia normal S1S2, pulses present bilaterally Chest/Lungs: CTA B, Symmetrical chest expansion, good air entry bilaterally GI/Abdomen: soft, NTND, good bowel sounds, no guarding or rebound /Bladder: no suprapubic tenderness, no CVA or paraspinal tenderness Extermity/Skin: no c/c/e, no obvious rash MSK: FROM x 4 Neuro: CN 2-12 grossly intact, no focal deficits Psych: calm - Constitutional Vitals: Temp Pulse Resp BP Pulse Ox 98.0 F 47 L 18 146/66 94 01/29/19 07:10 01/29/19 10:00 01/29/19 07:59 01/29/19 07:10 01/29/19 10:00 Results - Labs CBC & Chem 7: 01/28/19 19:15 01/28/19 19:15 Labs: Laboratory Last Values WBC 7.4 K/mm3 (4.5-11.0) 01/28/19 19:15 RBC 5.52 M/mm3 (3.65-5.03) H 01/28/19 19:15 Hgb 15.2 gm/dl (10.1-14.3) H 01/28/19 19:15 Hct 45.1 % (30.3-42.9) H 01/28/19 19:15 MCV 82 fl (79-97) 01/28/19 19:15 MCH 28 pg (28-32) 01/28/19 19:15 MCHC 34 % (30-34) 01/28/19 19:15 RDW 14.2 % (13.2-15.2) 01/28/19 19:15 Plt Count 336 K/mm3 (140-440) 01/28/19 19:15 Lymph % (Auto) 35.9 % (13.4-35.0) H 01/28/19 19:15 Guthrie % (Auto) 7.3 % (0.0-7.3) 01/28/19 19:15 Eos % (Auto) 1.3 % (0.0-4.3) 01/28/19 19:15 Baso % (Auto) 1.4 % (0.0-1.8) 01/28/19 19:15 Lymph # 2.6 K/mm3 (1.2-5.4) 01/28/19 19:15 Guthrie # 0.5 K/mm3 (0.0-0.8) 01/28/19 19:15 Eos # 0.1 K/mm3 (0.0-0.4) 01/28/19 19:15 Baso # 0.1 K/mm3 (0.0-0.1) 01/28/19 19:15 Seg Neutrophils % 54.1 % (40.0-70.0) 01/28/19 19:15 Seg Neutrophils # 4.0 K/mm3 (1.8-7.7) 01/28/19 19:15 PT 12.5 Sec. (12.2-14.9) 01/28/19 19:15 INR 0.96 (0.87-1.13) 01/28/19 19:15 APTT 24.6 Sec. (24.2-36.6) 01/28/19 19:15 16.8 Sec. (15.1-19.6) 01/28/19 19:15 Sodium 139 mmol/L (137-145) 01/28/19 19:15 Potassium 4.7 mmol/L (3.6-5.0) 01/28/19 19:15 Chloride 98.6 mmol/L (98-107) 01/28/19 19:15 Carbon Dioxide 24 mmol/L (22-30) 01/28/19 19:15 21 mmol/L 01/28/19 19:15 BUN 16 mg/dL (7-17) 01/28/19 19:15 1.0 mg/dL (0.7-1.2) 01/28/19 19:15 Estimated GFR > 60 ml/min 01/28/19 19:15 16 % 01/28/19 19:15 Glucose 90 mg/dL (65-100) 01/28/19 19:15 Calcium 10.6 mg/dL (8.4-10.2) H 01/28/19 19:15 0.40 mg/dL (0.1-1.2) 01/28/19 19:15 < 0.2 mg/dL (0-0.2) 01/28/19 19:15 0.2 mg/dL 01/28/19 19:15 AST 31 units/L (5-40) 01/28/19 19:15 ALT 14 units/L (7-56) 01/28/19 19:15 88 units/L (35-129) 01/28/19 19:15 < 0.010 ng/mL (0.00-0.029) 01/28/19 19:15 9.1 g/dL (6.3-8.2) H 01/28/19 19:15 5.3 g/dL (3.9-5) H 01/28/19 19:15 1.4 % 01/28/19 19:15 Triglycerides 84 mg/dL (2-149) 01/29/19 03:53 Cholesterol 201 mg/dL (50-199) H 01/29/19 03:53 143 mg/dL (50-130) H 01/29/19 03:53 57 mg/dL (40-59) 01/29/19 03:53 3.52 % 01/29/19 03:53 Plasma/Serum Alcohol < 0.01 % (0-0.07) 01/28/19 19:15 Active Medications - Current Medications Current Medications: Generic Name Dose Route Start Last Admin Trade Name Freq PRN Reason Stop Dose Admin Acetaminophen 650 mg 01/28/19 22:35 Tylenol PO Q4H PRN Pain, Mild (1-3) Aspirin 325 mg 01/29/19 10:00 01/29/19 10:53 Aspirin PO 325 mg QDAY MAN Administration Bisacodyl 10 mg 01/28/19 22:35 Dulcolax VT QDAY PRN Constipation Cyclobenzaprine HCl 5 mg 01/29/19 02:22 01/29/19 03:06 Flexeril PO 5 mg Q8H PRN Administration Muscle Spasm Enoxaparin Sodium 40 mg 01/29/19 10:00 01/29/19 10:53 Lovenox SUB-Q 40 mg QDAY@1000 MAN Administration Magnesium Hydroxide 30 ml 01/28/19 22:35 Milk Of Magnesia PO Q4H PRN Constipation Ondansetron HCl 4 mg 01/28/19 22:35 Zofran IV Q4H PRN Nausea And Vomiting Pravastatin Sodium 20 mg 01/29/19 22:00 Pravachol PO QHS MAN Promethazine HCl 25 mg 01/28/19 22:35 01/29/19 00:04 Phenergan VT 25 mg Q6H PRN Administration Nausea And Vomiting Sodium Chloride 10 ml 01/28/19 22:35 Sodium Chloride Flush Syringe 10 Ml IV PRN PRN LINE FLUSH Tramadol HCl 25 mg 01/29/19 05:37 Ultram PO Q4H PRN Pain, Moderate (4-6)
--- NOTE | 2019-01-29 15:37 | Magnetic Resonance Report ---
MRI BRAIN WITHOUT CONTRAST INDICATION / CLINICAL INFORMATION: stroke. TECHNIQUE: Multiplanar, multisequence MR images of the brain were obtained. COMPARISON: The study is compared to the previous MRI of 02/04/2014. FINDINGS: BRAIN / INTRACRANIAL CONTENTS: The brain appears to demonstrate appropriate signal. Restricted for ag e without significant interval change from the previous MRI of 02/04/2014. The diffusion imaging reveal s no evidence of acute infarction. There is mild cerebral atrophy with associated mild prominence of the ventricular system. No extra-axial fluid collections or significant mass effect is identified. CRANIOCERVICAL JUNCTION: No significant abnormality. VASCULAR FLOW-VOIDS: There is small caliber of the distal left vertebral artery which is likely devel opmental. Otherwise, the intracranial vessels grossly demonstrate appropriate signal void set. ORBITS: No significant abnormality of visualized orbits. SINUSES / MASTOIDS: No significant abnormality of the visualized paranasal sinuses or mastoid air richar ls. ADDITIONAL FINDINGS: None. IMPRESSION: 1. The MRI the brain is unremarkable for age without evidence of recent infarction. Signer Name: Calderon De La Cruz MD Signed: 01/29/2019 3:33 PM Workstation Name: [id number]
--- NOTE | 2019-01-29 20:13 | Consultation ---
HISTORY OF PRESENT ILLNESS: A 69-year-old female admitted to [facility] on 01/28/2019. This patient is admitted to the hospital following an episode which occurred. She presented to the Emergency Room with nausea and numbness in the right side of her face, headache and confusion. The patient had been off her blood pressure medication and had a prior history of being on fentanyl, which was the patch every 72 hours, oxycodone 5 mg and Zofran. The patient presented with numbness in the right side of the face, slurred speech and generalized weakness. The patient on presentation had a blood pressure of 199/76, pulse rate 80, respirations 18. On examination, cranial nerves 2-12 are intact. Numbness is present. Neck is supple. Speech is clear. No drift to extremities present. Motor tone is symmetrical. Sensory examination is normal. The patient does not have any seizure activity. PLAN: I planned to have actually review over what dose fentanyl she was taken is not clear. The strength of the fentanyl comes as a 12.5, 25, 50, 75, 100, 150 mcg patch. It would be important to know which size patch she was taking as usually fentanyl given the elderly people is very sensitive to producing sedation and I am not sure if this was adequately assessed. I have reviewed over her CTA of the head that shows a small atherosclerotic plaque in the right internal carotid artery, in the right ICA, but that is obviously the same side as the sensory loss on the face was present and therefore is not probably anatomically correlated with this patient's symptoms, I have reviewed her MRI scan of the brain, to my view, it appears entirely normal. I do not see any evidence of any focal ischemia. Reviewing the images that I have access to, the cornell and white matter appeared quite normal. I did carefully review the posterior fossa structures. I do not see any evidence of any posterior fossa lesions and the exit zones of the cranial nerve such as the trigeminal ganglion which would suggest that this might be trigeminal neuralgia. I certainly do not see any intracranial lesions to account for this. Cornell-white matter certainly normal for the patient's stated age. I did very carefully assess the region of the trigeminal ganglion in the base of the orbit. I do not see anything on the right side that was suggestive of a focal lesion. This area was carefully assessed by me with that in consideration given the patient's symptoms of potentially being taken down, although, I do not see evidence of that. At this point, the patient's condition is stable. I do not see evidence of a stroke. This could entirely be related to TIA related to blood pressure that is my assessment at this time. JOB# [id number] RUSLAN/NTS
[2019-01-29] MEDS ORDERED: PRAVACHOL PO SCH (22:00)
[2019-01-30] MEDS: LOVENOX SUB-Q SCH (09:53)
[2019-01-30] MEDS: ASPIRIN PO SCH (09:53)
[2019-01-30 10:05] VITALS: BP 144/56
[2019-01-30] MEDS ORDERED: COZAAR PO SCH (11:00)
[2019-01-30] MEDS ORDERED: HCTZ PO SCH (11:00)
--- NOTE | 2019-01-30 12:59 | Event Note ---
Date: 01/30/19 Cardiology note dictated #1 sinus bradycardia #2 hypertension #3 hyperlipidemia #4 possible TIA Patient is seen for cardiac evaluation. Clinically she is stable. Patient has long-standing history of bradycardia. Patient had a echocardiogram that showed normal left ventricular function. Overall cardiac status is stable. Thank you Dr. Vásquez along with participate in the care of this pleasant lady LIZET Tabor
--- NOTE | 2019-01-30 14:47 | Discharge Summary ---
Providers - Providers Date of Admission: 01/28/19 22:13 Date of discharge: 01/30/19 Attending physician: KILLIAN PATEL 01/28/19 Consult to Physician [CONS] Routine Comment: Consulting Provider: KATHERIN BUTCHER Physician Instructions: Reason For Exam: tia 01/28/19 22:35 Occupational Therapy Evaluate and Treat [CONS] Routine Comment: Reason For Exam: Neuro deficits Physical Therapy Evaluation and Treat [CONS] Routine Comment: Reason For Exam: Neuro deficits 01/29/19 14:40 Consult to Physician [CONS] Routine Comment: Consulting Provider: MELVI PRADHAN Physician Instructions: Reason For Exam: Bradycardia, HR 47 not on bb/ccb Primary care physician: RALPH SERRANO Hospitalization Condition: Stable Hospital course: Patient is a 69 yo woman with a history of hypertension and dyslipidemia who presented to [facility] ED with slurred speech and generalized weakness. She has not taken her antihypertensives for 2-3 weeks because [facility] in [place] is out of the Losartan hct 50/12.5. I called and spoke with the pharmacist. The pharmacy is still out of the losartan hct 50/12.5 but they do have the i ndividual losartan and hct available. I inquired why the pharmacy did not notify the PCP or give her the option of taking the separate pills, they did not document why per pharmacist. Patient unable to take Lisinopril due to cough. She presented to the hospital with bp of 201/110 heart 59. She was started on IV cardene drip and admitted to the hospital, to control the bp. TIA associated with uncontrolled hypertension. MRI negative for acute stroke, read by Neurologist Dr. Butcher, treat with asa and statin. Malignant hypertension: treat with antihypertensives Bradycardia: reviewed ECHO, HR as low as 47, will consult Cardiology, input noted Dyslipidemia: on zocor 10mg/d will increase Disposition: DC-01 TO HOME OR SELFCARE Time spent for discharge: 36 minutes Core Measure Documentation - Palliative Care Palliative Care/ Comfort Measures: Not Applicable - Core Measures Any of the following diagnoses?: none - VTE Discharge Requirements Deep Vein Thrombosis/Pulmonary Embolism Present on Admission: No Has pt received <5 days of overlap therapy or INR<2.0: No Anticoagulant overlap therapy prescribed at discharge: No Contraindication No Overlap Therapy order at DC: Not Indicated Exam - Physical Exam Narrative exam: Gen: WDWN, NAD, Awake, Alert, Orientated HEENT: NCAT, EOMI, PERRL, OP Clear Neck: supple, no adenopathy, no thyromegaly, no JVD CVS/Heart: bradycardia normal S1S2, pulses present bilaterally Chest/Lungs: CTA B, Symmetrical chest expansion, good air entry bilaterally GI/Abdomen: soft, NTND, good bowel sounds, no guarding or rebound /Bladder: no suprapubic tenderness, no CVA or paraspinal tenderness Extermity/Skin: no c/c/e, no obvious rash MSK: FROM x 4 Neuro: CN 2-12 grossly intact, no focal deficits Psych: calm - Constitutional Vitals: Temp Pulse Resp BP Pulse Ox 99.0 F 54 L 18 144/56 98 01/30/19 09:52 01/30/19 10:36 01/30/19 10:00 01/30/19 10:36 01/30/19 09:52 Plan Activity: other (no strenous activity ) Diet: low salt Special Instructions: record daily BP diary Follow up with: RALPH SERRANO MD [Primary Care Provider] - 7 Days MELVI PRADHAN MD [Staff Physician] - 14 Days KATHERIN BUTCHER MD [Staff Physician] - 10 Days Prescriptions: AtorvaSTATin [Lipitor] 40 mg PO QHS #30 tab Losartan [Cozaar] 50 mg PO QDAY #30 tablet hydroCHLOROthiazide [HCTZ] 12.5 mg PO QDAY #30 capsule Pantoprazole [Protonix TAB] 20 mg PO QDAY #30 tablet.
== END 2019-01-30 16:00 | disposition home or self-care (01) | DRG 69 ==
LOC: ED 18:35 → 4A 22:13 → CC1 22:54 → 4A 01-29 06:57
PROVIDERS: ADMIT Internal Medicine; ATTEND Internal Medicine
DX: G45.9 Transient cerebral ischemic attack, unspecified (principal); G93.40 Encephalopathy, unspecified; I16.0 Hypertensive urgency; I10 Essential (primary) hypertension; Z90.710 Acquired absence of both cervix and uterus; Z98.51 Tubal ligation status; Z85.038 Personal history of other malignant neoplasm of large intestine; Z88.6 Allergy status to analgesic agent; Z88.8 Allergy status to other drugs, medicaments and biological substances; Z83.3 Family history of diabetes mellitus; R47.81 Slurred speech; Z82.49 Family history of ischemic heart disease and other diseases of the circulatory system; E11.9 Type 2 diabetes mellitus without complications; R00.1 Bradycardia, unspecified; E78.5 Hyperlipidemia, unspecified; Z79.899 Other long term (current) drug therapy
CPT/HCPCS: 36415; 70450; 70496; 70498; 70551; 80048; 80061; 80076; 80320; 84484; 85025; 85610; 85670; 85730; 93005; 93010; 93306; 96365; 96375; G0378; G0480; J1170; J1650; J2270; J2405; J7050; Q9967

== ENCOUNTER 2019-01-30 17:07 | Emergency (ER) | payer MEDICARE, OTHER ==
--- NOTE | 2019-01-30 17:21 | Event Note ---
ED Screening Note Date of service: 01/30/19 Time: 17:13 ED Screening Note: This is a 69 y.o. F. that presents to the ER s/p ground level fall. Patient states she was discharged from this ER 30 minutes ago and had a ground level fall. Patient son went into behaview and someone told her she fell. He went outside and found her on the ground. He reports patient initially had slurred speech which has improved. Patient denies hitting her head, dizziness. This initial assessment/diagnostic orders/clinical plan/treatment(s) is/are subject to change based on patients health status, clinical progression and re- assessment by fellow clinical providers in the ED. Further treatment and workup at subsequent clinical providers discretion. Patient/guardian urged not to elope from the ED as their condition may be serious if not clinically assessed and managed. Initial orders include: EKG, accucheck
--- NOTE | 2019-01-30 18:10 | Emergency Department Report ---
ED General Adult HPI - General Chief complaint: Fall Stated complaint: FALL/DIZZINESS/BUSTED LIP/HIGH BP Time Seen by Provider: 01/30/19 17:10 Source: patient, family Mode of arrival: Wheelchair Limitations: No Limitations - History of Present Illness Initial comments: Is a 69-year-old female who presents with a dizzy episode and near-syncope. Patient was recently discharged from [facility] for strokelike symptoms. Patient have full complete workup and was deemed appropriate for discharge. All patient was leaving the hospital she felt lightheaded and fell. Patient denies hitting her head is losing consciousness she denies any knee pain or any nausea. Patient states that she's not feeling any dizzy anymore. - Related Data Previous Rx's Medication Instructions Recorded Last Taken Type Acetaminophen [Acetaminophen TAB] 650 mg PO Q4H PRN #20 tablet 01/30/19 Unknown Rx Aspirin 325 mg PO QDAY #30 tablet 01/30/19 Unknown Rx AtorvaSTATin [Lipitor] 40 mg PO QHS #30 tab 01/30/19 Unknown Rx Losartan [Cozaar] 50 mg PO QDAY #30 tablet 01/30/19 Unknown Rx Pantoprazole [Protonix TAB] 20 mg PO QDAY #30 tablet. 01/30/19 Unknown Rx hydroCHLOROthiazide [HCTZ] 12.5 mg PO QDAY #30 capsule 01/30/19 Unknown Rx Allergies Allergy/AdvReac Type Severity Reaction Status Date / Time codeine Allergy HALLUCINATI Verified 09/01/16 18:17 ONS lisinopril AdvReac Unknown Verified 01/29/19 14:33 ED Review of Systems ROS: Stated complaint: FALL/DIZZINESS/BUSTED LIP/HIGH BP Other details as noted in HPI Constitutional: denies: chills, fever Eyes: denies: eye pain, eye discharge, vision change ENT: denies: ear pain, throat pain Respiratory: denies: cough, shortness of breath, wheezing Cardiovascular: denies: chest pain, palpitations Endocrine: no symptoms reported Gastrointestinal: denies: abdominal pain, nausea, diarrhea Genitourinary: denies: urgency, dysuria, discharge Musculoskeletal: denies: back pain, joint swelling, arthralgia Skin: denies: rash, lesions Neurological: denies: headache, weakness, paresthesias Psychiatric: denies: anxiety, depression Hematological/Lymphatic: denies: easy bleeding, easy bruising ED Past Medical Hx - Past Medical History Hx Hypertension: Yes Hx Diabetes: Yes Hx Dementia: Yes - Surgical History Additional Surgical History: colon surgery. TUBAL LIGATION. HYSTERECTOMY. TONSILLECTOMY - Social History Smoking Status: Never Smoker Substance Use Type: None - Medications Home Medications: Home Medications Medication Instructions Recorded Confirmed Last Taken Type Acetaminophen [Acetaminophen TAB] 650 mg PO Q4H PRN #20 tablet 01/30/19 Unknown Rx Aspirin 325 mg PO QDAY #30 tablet 01/30/19 Unknown Rx AtorvaSTATin [Lipitor] 40 mg PO QHS #30 tab 01/30/19 Unknown Rx Losartan [Cozaar] 50 mg PO QDAY #30 tablet 01/30/19 Unknown Rx Pantoprazole [Protonix TAB] 20 mg PO QDAY #30 tablet.dr 01/30/19 Unknown Rx hydroCHLOROthiazide [HCTZ] 12.5 mg PO QDAY #30 capsule 01/30/19 Unknown Rx ED Physical Exam - General Limitations: No Limitations General appearance: alert, in no apparent distress - Head Head exam: Present: atraumatic, normocephalic - Eye Eye exam: Present: normal appearance - ENT ENT exam: Present: mucous membranes moist - Neck Neck exam: Present: normal inspection - Respiratory Respiratory exam: Present: normal lung sounds bilaterally. Absent: respiratory distress - Cardiovascular Cardiovascular Exam: Present: regular rate, normal rhythm. Absent: systolic murmur, diastolic murmur, rubs, gallop - GI/Abdominal GI/Abdominal exam: Present: soft, normal bowel sounds - Extremities Exam Extremities exam: Present: normal inspection - Back Exam Back exam: Present: normal inspection - Neurological Exam Neurological exam: Present: alert, oriented X3 - Psychiatric Psychiatric exam: Present: normal affect, normal mood - Skin Skin exam: Present: warm, dry, intact, normal color. Absent: rash ED Course Vital Signs 01/30/19 17:18 Temperature 98.0 F Pulse Rate 45 L Respiratory 18 Rate Blood Pressure 133/59 O2 Sat by Pulse 100 Oximetry ED Medical Decision Making - EKG Data -: EKG Interpreted by Ri - EKG Data 01/30/19 18:14 EKG shows sinus bradycardia rate [address] segment depression was ST segment elevation MS axis impression sinus bradycardia - Medical Decision Making Chief medical diagnosis: Near syncope Differential medical diagnosis: Arrhythmia, hypoglycemia EKG and [id number] glucose. If unremarkable I will send patient home. Critical care attestation.: If time is entered above; I have spent that time in minutes in the direct care of this critically ill patient, excluding procedure time. ED Disposition Clinical Impression: Dizziness Disposition: DC-01 TO HOME OR SELFCARE Is pt being admited?: No Does the pt Need Aspirin: No Condition: Stable
[2019-01-30 18:28] VITALS: BP 138/84
--- NOTE | 2019-01-30 23:26 | Consultation ---
REFERRING PHYSICIAN: Dr. Garza. HISTORY OF PRESENT ILLNESS: This 69-year-old female is seen for cardiac evaluation because of bradycardia. The patient was admitted with slurred speech and generalized weakness and she also had some arm weakness. She is feeling better today. She denies chest pain, difficulty in breathing or palpitations. No history of previous myocardial infarction or congestive heart failure. The patient is known to have bradycardia for a long time. She is also known to have hypertension and hyperlipidemia and she has been on medications, but she has not been taking her antihypertensives for a couple of weeks. Neurological evaluation is in progress because of the possible transient ischemic episode. Initial blood pressure was markedly elevated at 201/110. Currently, the blood pressure is reasonably controlled. REVIEW OF SYSTEMS: HEAD, EYES, EARS, NOSE AND THROAT: No symptoms today. ENDOCRINE: No history of diabetes. GASTROINTESTINAL: No abdominal pain, nausea, or vomiting. Bowel habits have been regular. GENITOURINARY: No symptoms. CENTRAL NERVOUS SYSTEM: As mentioned earlier. PERSONAL HISTORY: Nonsmoker, nonalcoholic. FAMILY HISTORY: Not contributory. PHYSICAL EXAMINATION: GENERAL: Elderly female, in no acute distress. VITAL SIGNS: Blood pressure 140/60, pulse 50, respirations 18. HEENT: Unremarkable. NECK: Supple. No thyromegaly. Both carotids are palpable and equal. Neck veins are flat. CHEST: Symmetrical. LUNGS: Clear. CARDIOVASCULAR: S1 and S2 are heard well. No S3. No significant murmurs are appreciated. ABDOMEN: Soft, nontender. EXTREMITIES: No edema or calf tenderness. LABORATORY DATA: EKG shows sinus bradycardia, nonspecific ST changes. Monitor strips are reviewed. The patient is noted to have sinus bradycardia with narrow QRS complexes. No symptomatic bradycardia has been documented. LABORATORY DATA: Hemoglobin 15.2, hematocrit 45.1. Sodium 139, potassium 4.7, BUN 16, creatinine 1, calcium 10.6, troponin normal. Total cholesterol 201, LDL 143, HDL 57. IMPRESSION: 1. Sinus bradycardia. The patient has a history of sinus bradycardia for a long time and she has not been symptomatic. At present, no other intervention is required. 2. Hypertension. 3. Hyperlipidemia. 4. Possible transient ischemic episode. Neurological evaluation is in progress. The patient will be monitored and followed with you. The patient had an echocardiogram that shows normal left ventricular function with no significant valvular heart disease. Thank you, Dr. Garza for allowing me to participate in the care of this pleasant lady. JOB# [id number] MITZI/MARTA
== END 2019-01-30 19:06 | disposition home or self-care (01) ==
LOC: ED 17:07
DX: R42 Dizziness and giddiness (principal); R55 Syncope and collapse; I10 Essential (primary) hypertension; E11.9 Type 2 diabetes mellitus without complications; F03.90 Unspecified dementia, unspecified severity, without behavioral disturbance, psychotic disturbance, mood disturbance, and anxiety; Z90.89 Acquired absence of other organs; Z98.890 Other specified postprocedural states; Z98.51 Tubal ligation status; Z90.710 Acquired absence of both cervix and uterus; Z79.899 Other long term (current) drug therapy; Z88.5 Allergy status to narcotic agent; Z88.8 Allergy status to other drugs, medicaments and biological substances
CPT/HCPCS: 82962; 93005; 93010

== ENCOUNTER 2019-07-25 14:35 | Emergency (ER) | payer MEDICARE, OTHER ==
[2019-07-25 15:01] LABS: Basophils % (Auto) 0.9 % (0.0-1.8); Eosinophils % (Auto) 0.8 % (0.0-4.3); Hematocrit 41.2 % (30.3-42.9); Hemoglobin 13.7 gm/dl (10.1-14.3); Lymphocytes # (Auto) 1.6 K/mm3 (1.2-5.4); Lymphocytes % (Auto) 28.5 % (13.4-35.0); Mean Corpuscular HGB Conc 33 % (30-34); Mean Corpuscular Volume 81 fl (79-97); Monocytes # (Auto) 0.5 K/mm3 (0.0-0.8); Monocytes % (Auto) 8.2 % (0.0-7.3); Platelet Count 283 K/mm3 (140-440); Red Blood Count 5.11 M/mm3 (3.65-5.03); Red Cell Distribution Width 13.9 % (13.2-15.2)
--- NOTE | 2019-07-25 15:10 | Cat Scan Report ---
CT head without contrast HISTORY: MAIN: CODE STROKE CALL [phone]. TECHNIQUE: Axial imaging performed from the skull apex through the skull base without the use of con trast. All CT scans at this location are performed using CT dose reduction for ALARA by means of aut omated exposure control. COMPARISON: CT head from 01/28/2019 FINDINGS: Parenchyma: No acute intracranial hemorrhage or parenchymal abnormality. Ventricles: There is mild diffuse brain atrophy with commensurate ventricular enlargement which is l ikely age appropriate. Soft tissues: Soft tissues including the orbits appear normal. Bones: No acute osseous abnormality. Sinuses: Sinuses and mastoid air cells are clear. IMPRESSION: No acute abnormality. COMMUNICATION: Time of Communication (BROOM HANDLE DIPPER/CDT): 2:05 PM Licensed Practitioner Receiving Report: Dr. Santamaria Signer Name: Ben Perera MD Signed: 07/25/2019 3:06 PM Workstation Name: [id number]
[2019-07-25 15:13] LABS: INR 0.94 (0.87-1.13); Partial Thromboplastin Time 33.1 Sec. (24.2-36.6)
[2019-07-25 15:14] LABS: BUN/Creatinine Ratio 14; Blood Urea Nitrogen 18 mg/dL (7-17); Calcium 10.1 mg/dL (8.4-10.2); Hemolysis Index 9
[2019-07-25] MEDS ORDERED: ASPIRIN 81 MG TAB CHEW PO ONE (15:19)
--- NOTE | 2019-07-25 15:23 | Emergency Department Report ---
HPI - General Chief Complaint: Neuro Symptoms/Deficit Time Seen by Provider: 07/25/19 14:47 - HPI HPI: 69-year-old female presents to the emergency department from home, through triage, as a code stroke. Patient says that she developed a generalized headache and some left-sided numbness starting around 11 AM this morning. The numbness, or decreased sensation, is to the left side of the face and the hand and distal arm. She denies any vision change, slurred speech. She did not take anything for her symptoms prior to presentation. She has a history of hypertension and hyperlipidemia for which she is on medications. She goes to [facility] for primary care. Patient was here last year for similar symptoms and had a negative MRI, echocardiogram, and appears to have been diagnosed with a TIA. ED Past Medical Hx - Past Medical History Hx Hypertension: Yes Hx Diabetes: Yes Hx Dementia: Yes - Surgical History Additional Surgical History: colon surgery. TUBAL LIGATION. HYSTERECTOMY. TONSILLECTOMY - Social History Smoking Status: Never Smoker Substance Use Type: None - Medications Home Medications: Home Medications Medication Instructions Recorded Confirmed Last Taken Type Acetaminophen [Acetaminophen TAB] 650 mg PO Q4H PRN #20 tablet 01/30/19 Unknown Rx Aspirin 325 mg PO QDAY #30 tablet 01/30/19 Unknown Rx AtorvaSTATin [Lipitor] 40 mg PO QHS #30 tab 01/30/19 Unknown Rx Losartan [Cozaar] 50 mg PO QDAY #30 tablet 01/30/19 Unknown Rx Pantoprazole [Protonix TAB] 20 mg PO QDAY #30 tablet. 01/30/19 Unknown Rx hydroCHLOROthiazide [HCTZ] 12.5 mg PO QDAY #30 capsule 01/30/19 Unknown Rx ED Review of Systems ROS: Stated complaint: DISORIENTED Other details as noted in HPI Comment: All other systems reviewed and negative Constitutional: denies: chills, fever Eyes: denies: eye pain, vision change ENT: denies: ear pain, throat pain Respiratory: denies: cough, shortness of breath Cardiovascular: denies: chest pain, palpitations Gastrointestinal: denies: abdominal pain, vomiting Genitourinary: denies: dysuria, discharge Musculoskeletal: denies: back pain, arthralgia Skin: denies: rash, lesions Neurological: headache, numbness. denies: weakness Physical Exam - Physical Exam Physical Exam: GENERAL: The patient is well-developed well-nourished. HEENT: Normocephalic. Atraumatic. Patient has moist mucous membranes. EYES: Extraocular motions are intact. Pupils equal and reactive to light bilaterally. No nystagmus. NECK: Supple. Trachea is midline. CHEST/LUNGS: Clear to auscultation. There is no respiratory distress noted. HEART/CARDIOVASCULAR: Regular. There is no tachycardia. There is no murmur. ABDOMEN: Abdomen is soft, nontender. Patient has normal bowel sounds. There is no abdominal distention. SKIN:Skin is warm and dry. NEURO: The patient is awake, alert, and oriented. The patient is cooperative. No motor deficits. Subjective decreased sensation to the left side of the face when compared to the right side. Otherwise cranial nerves II through XII grossly intact. Normal speech. No pronator drift. No dysmetria. No facial asymmetry. MUSCULOSKELETAL: There is no tenderness or deformity. There is no limitation range of motion. There is no evidence of acute injury. ED Course - Reevaluation(s) Reevaluation #1: From my initial examination the patient has been adamant that she will not be a dmitted to the hospital. She says that she has some family issues and which they are recovering from their own illnesses and it would be very stressful to them and it appears that she does not plan to tell them about her symptoms and does not want to deal with having to tell them she was admitted to the hospital. However, even with the low NIH stroke score, it is the recommendation of both myself and the neurologist that the patient get admitted for further workup that would most likely include an MRI and possibly ultrasound of the carotids or echocardiogram. The patient was willing to stay for the ER workup but I spoke to her once again and she is still adamant about leaving AMA. The patient understands that leaving at this time could lead to worsening of her strokelike symptoms, further neurological deficits, disability, coma or even . The patient is awake, alert, oriented and has appropriate medical decision making capacity and therefore, despite understanding the risks, will still sign out AMA. She does, however, understand that she can return to the emergency department at any time if she changes her mind about further evaluation, admission, has any worsening of her symptoms, or with any acute distress. 07/25/19 16:24 - Consultations Consultation #1: The patient was seen by the telemedicine neurologist immediately after she returned from CT. I spoke with the neurologist who says they mutually agreed that the patient would not receive TPA. He did not feel that the patient needed angiography imaging secondary to the very low NIH score but does recommend admission for MRI and further stroke workup. 07/25/19 15:22 ED Medical Decision Making - Lab Data Result diagrams: 07/25/19 14:53 07/25/19 14:53 - EKG Data -: EKG Interpreted by Me EKG shows normal: sinus rhythm, axis, intervals, QRS complexes, ST-T waves Rate: bradycardia (47 bpm) - EKG Data When compared to previous EKG there are: no significant change (except current EKG bradycardia) Interpretation: unchanged when compared t (except current EKG bradycardia, 01/31/18) - Radiology Data Radiology results: report reviewed CT head without contrast HISTORY: MAIN: CODE STROKE CALL [phone]. TECHNIQUE: Axial imaging performed from the skull apex through the skull base without the use of contrast. All CT scans at this location are performed using CT dose reduction for ALARA by means of automated exposure control. COMPARISON: CT head from 01/28/2019 FINDINGS: Parenchyma: No acute intracranial hemorrhage or parenchymal abnormality. Ventricles: There is mild diffuse brain atrophy with commensurate ventricular enlargement which is likely age appropriate. Soft tissues: Soft tissues including the orbits appear normal. Bones: No acute osseous abnormality. Sinuses: Sinuses and mastoid air cells are clear. IMPRESSION: No acute abnormality. - Medical Decision Making This patient presents to the emergency department with a complaint of a headache and some left-sided facial and arm numbness. This started around 11 AM and therefore a code stroke was called. The patient was seen by the telemedicine neurologist, Dr. Frost, who gave a NIH stroke scale of 1 and had a discussion with the patient regarding TPA would not be necessary at this time. She was given a full dose aspirin after the CT scan of the head came back without signs of bleeding, ischemia, or any other acute process. EKG did not show any signs of ST elevation MN. Labs have been mostly unremarkable and do not explain her symptoms. The recommendation of both the neurologist and myself was within the patient to be admitted to the hospital for further evaluation of her strokelike symptoms. However, as previously mentioned in the reevaluation section, the patient refused admission and left AGAINST MEDICAL ADVICE. - Differential Diagnosis TIA, CVA, dysrhythmia, hypoglycemia Critical Care Time: No Critical care attestation.: If time is entered above; I have spent that time in minutes in the direct care of this critically ill patient, excluding procedure time. ED Disposition Clinical Impression: Numbness of face, Stroke-like symptoms Headache Qualifiers: Headache type: unspecified Headache chronicity pattern: unspecified pattern Intractability: not intractable Qualified Code(s): R51 - Headache Hypertension Qualifiers: Hypertension type: essential hypertension Qualified Code(s): I10 - Essential (primary) hypertension Disposition: 09 OP ADMIT IP TO THIS HOSP Is pt being admited?: Yes Condition: Fair Instructions: Hypertension (ED) Additional Instructions: Since you are not in agreement for admission and further evaluation of your strokelike symptoms, possible stroke, please follow-up with your primary care physician as soon as possible. Please return to the emergency department immediately if you change your mind about further evaluation, admission, have any worsening or new symptoms, or with any acute distress. Referrals: PRIMARY CAREMD [Primary Care Provider] - SAG[facility] Forms: AMA Form Time of Disposition: 16:28
--- NOTE | 2019-07-25 15:38 | Emergency Department Report ---
ED Neuro Deficit HPI - General Chief Complaint: Neuro Symptoms/Deficit Stated Complaint: DISORIENTED Time Seen by Provider: 07/25/19 14:47 Source: patient Mode of arrival: Ambulatory Limitations: No Limitations - History of Present Illness Initial Comments: [facility] Tele[facility]urology Consult Services TeleStroke Metrics: LKW: 1100 Door Time: 1435 [facility] Contacted: 1443 [facility] at Bedside: 1452 NIHSS: 1456 Decision on Alteplase: Patient has declined IV alteplase administration due to her mild symptoms. Interventional Candidate: Not a candidate as her symptoms are not consistent wit h a large vessel proximal occlusion. Chief Complaint: Left sided numbness HPI: Asked to see this patient in emergent telemedicine consultation utilizing i nteractive audio and video technologies. ?Consultation was performed with assistance of ancillary / medical staff at bedside. Verbal consent to perform the examination with telemedicine was obtained. Patient agreed to proceed with the consultation for acute stroke protocol. 69-year-old right-handed -[place] female who comes to the emergency room this afternoon for evaluation of acute left face and left arm numbness. Patient currently does not take any aspirin. Patient reports a similar episode back in January 2019 that was described as a TIA. It was noted she had generalized weakness and slurred speech then. This was in the context of elevated blood pressures. Patient recalls having a mild headache and right-sided weakness and numbness then. She had a negative MRI brain, negative CTA head and neck, and echocardiogram showed normal ejection fraction. Patient states that around 11 AM, she developed numbness over her left nose area that then spread to the left side of her lips. She then noted left finger numbness as well. She developed a mild 3/10 headache. Currently, she only complains of left face and left arm numbness. Head CT is negative. I reviewed with the patient about the availability of IV alteplase. I reviewed with her about some of the potential side effects of IV alteplase to include an approximate 6% risk of symptomatic intracranial hemorrhage, internal bleeding, and/or angioedema. At the end of the day, the patient was in agreement with not to receive IV alteplase as overall her symptoms are mild. She has opted for a more conservative approach. PMH: Hypertension, hyperlipidemia, TIA versus hypertensive urgency in January 2019, and history of colon cancer. She denies any history for migraines. SOC: Negative x3. Patient lives alone. FMH: Negative for stroke. Positive for diabetes mellitus and hypertension. ROS: 13 point review systems were reviewed with the patient, and are all neg ative with the exception of the aforementioned in the history of present illness. VS: Blood pressure 186/76 Exam: Patient is in no apparent distress. Patient appears as stated age. No obvious acute respiratory or cardiac distress. Patient is well groomed and well-nourished. 1a- LOC: Keenly responsive - 0 1b- LOC questions: Answers both questions correctly - 0 1c- LOC commands- Performs both tasks correctly- 0 2- Gaze: Normal; no gaze paresis or gaze deviation - 0 3- Visual Rivera: normal, no Visual field deficit - 0 4- Facial movements: no facial palsy - 0 5- Upper limb motor - no drift - 0 6- Lower limb motor - no drift - 0 7- Limb Coordination: absent ataxia - 0 8- Sensory: left face and arm sensory loss - 1 9- Language - No aphasia - 0 10- Speech - No dysarthria -0 11- Neglect / Extinction - none found - 0 NIHSS score: 1 Diagnostic Data: CT of the head showed no acute intracranial process Blood glucose 112 Medical Data Reviewed: 1.Data?reviewed include clinical labs, radiology,?and medical tests; 2.Tests?results discussed w/performing or interpreting physician; 3.Obtaining/reviewing old medical records; 4.Obtaining?case history from another source; 5.Independent?review of image, tracing, or specimen. Medical Decision Making: - Extensive number of diagnosis or management options are considered below. - Extensive amount of complex data reviewed. - High risk of complication and/or morbidity or mortality are associated with differential diagnostic considerations below. - There may be?uncertain?outcome and increased probability of prolonged functional impairment or high probability of severe prolonged functional impairment associated with some of these differential diagnosis. Differential Diagnosis for Stroke: 1.?Cardioembolic?stroke 2. Small vessel disease/lacune 3. Thromboembolic, [id number] mechanism 4.?Hypercoagulable?state-related infarct 5. Transient ischemic attack 6. Thrombotic mechanism, large artery disease Assessment: 1. Right MCA TIA versus hypertensive urgency 2. Hypertension 3. Hyperlipidemia 4. History of colon cancer Recommendations: Patient can be admitted to the hospital for further work-up of her symptoms. Patient can be started on a baby aspirin. Allow permissive hypertension. Okay to maintain systolic blood pressure to be less than 180 and diastolic blood pressure less than 100. Check MRI brain without contrast to rule out any acute intracranial process. Check carotid ultrasound. Check echocardiogram to gauge her cardiac function. Maintain the patient on telemetry to look for paroxysmal atrial fibrillation. Check hemoglobin A1c and lipid panel. Continue supportive care. Plan of care was discussed with the patient Thank you for allowing [facility] to participate in the care of your patient. Please call me, Dr. Frost, with any questions at [phone]. Case discussed with the ER staff and Dr. Santamaria. Critical Care notation: I was called to see this critical patient emergently. I personally evaluated this critical patient for acute stroke evaluation, and determining their eligibi lity for IV Alteplase and interventional therapies. I have spent approximately 11 minutes with the patient, including time at bedside, time discussing the case with other physicians, reviewing plan of care, and time independently reviewing the records and scans. - Related Data Home Medications: Previous Rx's Medication Instructions Recorded Last Taken Type Acetaminophen [Acetaminophen TAB] 650 mg PO Q4H PRN #20 tablet 01/30/19 Unknown Rx Aspirin 325 mg PO QDAY #30 tablet 01/30/19 Unknown Rx AtorvaSTATin [Lipitor] 40 mg PO QHS #30 tab 01/30/19 Unknown Rx Losartan [Cozaar] 50 mg PO QDAY #30 tablet 01/30/19 Unknown Rx Pantoprazole [Protonix TAB] 20 mg PO QDAY #30 tablet. 01/30/19 Unknown Rx hydroCHLOROthiazide [HCTZ] 12.5 mg PO QDAY #30 capsule 01/30/19 Unknown Rx Allergies/Adverse Reactions: Allergies Allergy/AdvReac Type Severity Reaction Status Date / Time codeine Allergy HALLUCINATI Verified 09/01/16 18:17 ONS lisinopril AdvReac Unknown Verified 01/29/19 14:33 ED Review of Systems ROS: Stated complaint: DISORIENTED Other details as noted in HPI Constitutional: denies: chills, fever Eyes: denies: eye pain, vision change ENT: denies: ear pain, throat pain Respiratory: denies: cough, shortness of breath Cardiovascular: denies: chest pain, palpitations Gastrointestinal: denies: abdominal pain, vomiting Genitourinary: denies: dysuria, discharge Musculoskeletal: denies: back pain, arthralgia Skin: denies: rash, lesions Neurological: headache, numbness. denies: weakness ED Past Medical Hx - Past Medical History Hx Hypertension: Yes Hx Diabetes: Yes Hx Dementia: Yes - Surgical History Additional Surgical History: colon surgery. TUBAL LIGATION. HYSTERECTOMY. TONSILLECTOMY - Social History Smoking Status: Never Smoker Substance Use Type: None - Medications Home Medications: Home Medications Medication Instructions Recorded Confirmed Last Taken Type Acetaminophen [Acetaminophen TAB] 650 mg PO Q4H PRN #20 tablet 01/30/19 Unknown Rx Aspirin 325 mg PO QDAY #30 tablet 01/30/19 Unknown Rx AtorvaSTATin [Lipitor] 40 mg PO QHS #30 tab 01/30/19 Unknown Rx Losartan [Cozaar] 50 mg PO QDAY #30 tablet 01/30/19 Unknown Rx Pantoprazole [Protonix TAB] 20 mg PO QDAY #30 tablet. 01/30/19 Unknown Rx hydroCHLOROthiazide [HCTZ] 12.5 mg PO QDAY #30 capsule 01/30/19 Unknown Rx ED Neuro Physical Exam - General Limitations: No Limitations Suspected Stroke: Yes - NIHSS Assessment Interval: Baseline 1a. Level of Consciousness: alert/keenly responsive 1b. LOC Questions: answers both correctly 1c. LOC Commands: performs tasks correctly 2. Best Gaze: normal 3. Visual: no visual loss 4. Facial Palsy: normal symmetrical movement 5b. Motor Arm Right: no drift 5a. Motor Arm Left: no drift 6a. Motor Leg Left: no drift 6b. Motor Leg Right: no drift 7. Limb Ataxia: absent 8. Sensory: mild/moderate sensory loss 9. Best Language: no aphasia 10. Dysarthria: normal 11. Extinction/Inattention: no abnormality Total Score: 1 Stroke Severity: Minor Stroke ED Course Vital Signs 07/25/19 07/25/19 07/25/19 14:43 15:32 15:35 Pulse Rate 72 53 L Respiratory 18 15 Rate Blood Pressure 186/76 [Left] O2 Sat by Pulse 98 Oximetry - Lab Data Result diagrams: 07/25/19 14:53 07/25/19 14:53 Lab Results 07/25/19 07/25/19 07/25/19 Range/Units 14:50 14:53 14:53 WBC 5.6 (4.5-11.0) K/mm3 RBC 5.11 H (3.65-5.03) M/mm3 Hgb 13.7 (10.1-14.3) gm/dl Hct 41.2 (30.3-42.9) % MCV 81 (79-97) fl MCH 27 L (28-32) pg MCHC 33 (30-34) % RDW 13.9 (13.2-15.2) % Plt Count 283 (140-440) K/mm3 Lymph % (Auto) 28.5 (13.4-35.0) % [place] % (Auto) 8.2 H (0.0-7.3) % Eos % (Auto) 0.8 (0.0-4.3) % Baso % (Auto) 0.9 (0.0-1.8) % Lymph # 1.6 (1.2-5.4) K/mm3 [place] # 0.5 (0.0-0.8) K/mm3 Eos # 0.0 (0.0-0.4) K/mm3 Baso # 0.0 (0.0-0.1) K/mm3 Seg Neutrophils % 61.6 (40.0-70.0) % Seg Neutrophils # 3.4 (1.8-7.7) K/mm3 PT 12.7 (12.2-14.9) Sec. INR 0.94 (0.87-1.13) APTT 33.1 (24.2-36.6) Sec. Thrombin Time (15.1-19.6) Sec. Sodium (137-145) mmol/L Potassium (3.6-5.0) mmol/L Chloride (98-107) mmol/L Carbon Dioxide (22-30) mmol/L Anion Gap mmol/L BUN (7-17) mg/dL Creatinine (0.7-1.2) mg/dL Estimated GFR ml/min BUN/Creatinine Ratio % Glucose (65-100) mg/dL POC Glucose 112 H (70-105) Calcium (8.4-10.2) mg/dL Troponin T (0.00-0.029) ng/mL 07/25/19 07/25/19 Range/Units 14:53 14:53 WBC (4.5-11.0) K/mm3 RBC (3.65-5.03) M/mm3 Hgb (10.1-14.3) gm/dl Hct (30.3-42.9) % MCV (79-97) fl MCH (28-32) pg MCHC (30-34) % RDW (13.2-15.2) % Plt Count (140-440) K/mm3 Lymph % (Auto) (13.4-35.0) % [place] % (Auto) (0.0-7.3) % Eos % (Auto) (0.0-4.3) % Baso % (Auto) (0.0-1.8) % Lymph # (1.2-5.4) K/mm3 [place] # (0.0-0.8) K/mm3 Eos # (0.0-0.4) K/mm3 Baso # (0.0-0.1) K/mm3 Seg Neutrophils % (40.0-70.0) % Seg Neutrophils # (1.8-7.7) K/mm3 PT (12.2-14.9) Sec. INR (0.87-1.13) APTT (24.2-36.6) Sec. Thrombin Time 16.5 (15.1-19.6) Sec. Sodium 142 (137-145) mmol/L Potassium 4.1 (3.6-5.0) mmol/L Chloride 103.5 (98-107) mmol/L Carbon Dioxide 23 (22-30) mmol/L Anion Gap 20 mmol/L BUN 18 H (7-17) mg/dL Creatinine 1.3 H (0.7-1.2) mg/dL Estimated GFR 49 ml/min BUN/Creatinine Ratio 14 % Glucose 112 H (65-100) mg/dL POC Glucose (70-105) Calcium 10.1 (8.4-10.2) mg/dL Troponin T < 0.010 (0.00-0.029) ng/mL Critical care attestation.: If time is entered above; I have spent that time in minutes in the direct care of this critically ill patient, excluding procedure time. ED Disposition Clinical Impression: TIA (transient ischemic attack) Disposition: OP ADMIT IP TO THIS HOSP Is pt being admited?: Yes Does the pt Need Aspirin: Yes Condition: Stable
[2019-07-25 16:35] VITALS: BP 162/83
== END 2019-07-25 16:36 | disposition admitted as inpatient to this hospital (09) ==
LOC: ED 14:35
DX: R20.0 Anesthesia of skin (principal); R51 Headache; I10 Essential (primary) hypertension; E11.9 Type 2 diabetes mellitus without complications; F03.90 Unspecified dementia, unspecified severity, without behavioral disturbance, psychotic disturbance, mood disturbance, and anxiety; Z98.51 Tubal ligation status; Z90.710 Acquired absence of both cervix and uterus; Z98.890 Other specified postprocedural states; Z79.899 Other long term (current) drug therapy; Z88.4 Allergy status to anesthetic agent; Z88.8 Allergy status to other drugs, medicaments and biological substances
CPT/HCPCS: 36415; 70450; 80048; 82962; 84443; 84484; 85025; 85610; 85670; 85730; 93005; 93010

== ENCOUNTER 2020-03-24 05:52 | Emergency (ER) | payer MEDICARE ==
[2020-03-24 07:24] LABS: Basophils # (Auto) 0.1 K/mm3 (0.0-0.1); Basophils % (Auto) 0.9 % (0.0-1.8); Eosinophils % (Auto) 0.4 % (0.0-4.3); Hematocrit 39.1 % (30.3-42.9); Hemoglobin 13.1 gm/dl (10.1-14.3); Lymphocytes % (Auto) 12.1 % (13.4-35.0); Mean Corpuscular HGB Conc 34 % (30-34); Mean Corpuscular Volume 83 fl (79-97); Monocytes # (Auto) 0.7 K/mm3 (0.0-0.8); Monocytes % (Auto) 8.7 % (0.0-7.3); Platelet Count 304 K/mm3 (140-440); Red Blood Count 4.73 M/mm3 (3.65-5.03); Red Cell Distribution Width 14.4 % (13.2-15.2)
[2020-03-24 07:37] LABS: Alanine Aminotransferase 14 units/L (7-56); Albumin 4.4 g/dL (3.9-5); BUN/Creatinine Ratio 26; Blood Urea Nitrogen 26 mg/dL (7-17); Hemolysis Index 10
--- NOTE | 2020-03-24 09:10 | Emergency Department Report ---
ED General Adult HPI - General Chief complaint: GI Bleed Stated complaint: RECTAL BLEEDING PUI?: No Time Seen by Provider: 03/24/20 07:26 Source: patient, RN notes reviewed, old records reviewed Mode of arrival: Ambulatory Limitations: No Limitations - History of Present Illness Initial comments: The patient was evaluated in the emergency department for symptoms described in the history of present illness. He/she was evaluated in the context of the global COVID-19 pandemic, which necessitated consideration that the patient might be at risk for infection with the virus that causes COVID-19. Institutional protocols and algorithms that pertain to the evaluation of patients at risk for COVID-19 are in a state of rapid change based on information released by regulatory bodies including the CDC and federal and state organizations. These policies and algorithms were followed during the patient's care in the emergency department. Please note that these policies, procedures and recommendations changed on a rapid basis. Patient is a pleasant, calm and cooperative 70-year-old female. She has a past medical history of hypertension, type 2 diabetes, history of stroke, and reports that she does not take systemic anticoagulation. Patient was reportedly diagnosed with colon cancer a few years ago, reports having had a partial resection, with re anastomosis. She reports having had a "clean" colonoscopy 3 to 4 years ago, and reports not needing chemotherapy or radiation. She reports that she was "constipated" a few days ago, and "took some medicine to help me have a bowel movement." After taking her laxative, she reports having had a normal bowel movement, but does report needing to strain. While straining with defecation, she noticed bright red blood with brown stool. She denies headache, neck pain, chest pain, abdominal pain, shortness of breath, urinary symptoms, hematemesis. Bloody stool is intermittent, painless, does not radiate anywhere, and is occasionally accompanied by abdominal cramping, which is not present at this time. Patient reports that she is going to be able to closely follow-up with her outpatient neuropsychology director, and she is mostly presenting for assurance. During the history and physical examination, I am seating captain and escorted by nurse: ROLAND SKINNER -: Gradual, days(s) Consistency: intermittent Improves with: none Worsens with: none - Related Data Previous Rx's Medication Instructions Recorded Last Taken Type hydroCHLOROthiazide [HCTZ] 12.5 mg PO QDAY #30 capsule 01/30/19 Unknown Rx Aspirin EC [Halfprin EC] 81 mg PO QDAY #60 tablet. 03/20/20 Unknown Rx AtorvaSTATin [Lipitor] 40 mg PO QHS #60 tablet 03/20/20 Unknown Rx Losartan [Cozaar] 100 mg PO QDAY #30 tablet 03/20/20 Unknown Rx hydrALAZINE [Apresoline TAB] 100 mg PO TID #90 tab 03/20/20 Unknown Rx Allergies Allergy/AdvReac Type Severity Reaction Status Date / Time codeine Allergy HALLUCINATI Verified 03/24/20 07:50 ONS lisinopril AdvReac Unknown Verified 03/24/20 07:50 ED Review of Systems ROS: Stated complaint: RECTAL BLEEDING Other details as noted in HPI Constitutional: denies: fever Eyes: denies: eye discharge ENT: denies: epistaxis Respiratory: denies: cough Cardiovascular: denies: chest pain Gastrointestinal: constipation. denies: nausea, vomiting, hematemesis, melena Genitourinary: denies: dysuria Musculoskeletal: denies: myalgia Skin: denies: lesions Neurological: denies: weakness Hematological/Lymphatic: denies: easy bleeding ED Past Medical Hx - Past Medical History Previous Medical History?: Yes Hx Hypertension: Yes Hx CVA: Yes (tia) Hx Diabetes: Yes Hx of Cancer: Yes (COLON) Hx Dementia: Yes - Surgical History Past Surgical History?: Yes Additional Surgical History: colon surgery. TUBAL LIGATION. HYSTERECTOMY. TONSILLECTOMY - Social History Smoking Status: Never Smoker Substance Use Type: None - Medications Home Medications: Home Medications Medication Instructions Recorded Confirmed Last Taken Type hydroCHLOROthiazide [HCTZ] 12.5 mg PO QDAY #30 capsule 01/30/19 03/20/20 Unknown Rx Aspirin EC [Halfprin EC] 81 mg PO QDAY #60 tablet. 03/20/20 Unknown Rx AtorvaSTATin [Lipitor] 40 mg PO QHS #60 tablet 03/20/20 Unknown Rx Losartan [Cozaar] 100 mg PO QDAY #30 tablet 03/20/20 Unknown Rx hydrALAZINE [Apresoline TAB] 100 mg PO TID #90 tab 03/20/20 Unknown Rx ED Physical Exam - General Limitations: No Limitations General appearance: alert, in no apparent distress - Head Head exam: Present: atraumatic, normocephalic - Eye Eye exam: Present: normal appearance, EOMI. Absent: nystagmus - ENT ENT exam: Present: normal exam, normal orophraynx, mucous membranes moist, normal external ear exam - Neck Neck exam: Present: normal inspection, full ROM. Absent: tenderness, meningismus - Respiratory Respiratory exam: Present: normal lung sounds bilaterally. Absent: respiratory distress, wheezes, rales, rhonchi, stridor, decreased breath sounds - Cardiovascular Cardiovascular Exam: Present: normal rhythm, bradycardia, normal heart sounds. Absent: tachycardia, irregular rhythm, systolic murmur, diastolic murmur, rubs, gallop - GI/Abdominal GI/Abdominal exam: Present: soft, normal bowel sounds. Absent: distended, tenderness, guarding, rebound, rigid, pulsatile mass - Rectal Rectal exam: Present: normal inspection, normal rectal tone, heme (-) stool, other (Chaperoned by nurse ROLAND SKINNER). Absent: heme (+) stool, black stool, bloody stool - Extremities Exam Extremities exam: Present: normal inspection, full ROM, other (2+ pulses noted in the bilateral upper and lower extremities. There is no palpable cord. negative Homans sign. Muscular compartments are soft. The pelvis is stable.). Absent: pedal edema, calf tenderness - Back Exam Back exam: Present: normal inspection, full ROM. Absent: tenderness, CVA tenderness (R), CVA tenderness (L), paraspinal tenderness, vertebral tenderness - Neurological Exam Neurological exam: Present: alert, oriented X3, normal gait, other (No facial droop. Tongue midline. Extraocular movements intact bilaterally. Facial sensation intact to light touch in V1, V2, V3 distribution bilaterally. 5 and a 5 strength in 4 extremities. Sensation intact to light touch in 4 extremities.). Absent: motor sensory deficit - Psychiatric Psychiatric exam: Present: anxious - Skin Skin exam: Present: warm, dry, intact, normal color. Absent: rash ED Course Vital Signs 03/24/20 03/24/20 03/24/20 06:34 07:34 07:41 Temperature 98.0 F Pulse Rate 56 L 45 L Respiratory 16 19 Rate Blood Pressure 138/69 Blood Pressure 133/58 [Right] O2 Sat by Pulse 95 100 Oximetry ED Medical Decision Making - Lab Data Result diagrams: 03/24/20 06:48 03/24/20 06:48 Vital Signs (72 hours) 03/24/20 03/24/20 03/24/20 06:34 07:34 07:41 Temperature 98.0 F Pulse Rate 56 L 45 L Respiratory 16 19 Rate Blood Pressure 138/69 Blood Pressure 133/58 [Right] O2 Sat by Pulse 95 100 Oximetry 03/24/20 08:01 Temperature Pulse Rate 45 L Respiratory 17 Rate Blood Pressure 146/95 Blood Pressure [Right] O2 Sat by Pulse 99 Oximetry Lab Results 03/24/20 03/24/20 Range/Units 06:48 06:48 WBC 8.5 (4.5-11.0) K/mm3 RBC 4.73 (3.65-5.03) M/mm3 Hgb 13.1 (10.1-14.3) gm/dl Hct 39.1 (30.3-42.9) % MCV 83 (79-97) fl MCH 28 (28-32) pg MCHC 34 (30-34) % RDW 14.4 (13.2-15.2) % Plt Count 304 (140-440) K/mm3 Lymph % (Auto) 12.1 L (13.4-35.0) % [place] % (Auto) 8.7 H (0.0-7.3) % Eos % (Auto) 0.4 (0.0-4.3) % Baso % (Auto) 0.9 (0.0-1.8) % Lymph # (Auto) 1.0 L (1.2-5.4) K/mm3 [place] # (Auto) 0.7 (0.0-0.8) K/mm3 Eos # (Auto) 0.0 (0.0-0.4) K/mm3 Baso # (Auto) 0.1 (0.0-0.1) K/mm3 Seg Neutrophils % 77.9 H (40.0-70.0) % Seg Neutrophils # 6.6 (1.8-7.7) K/mm3 Sodium 139 (137-145) mmol/L Potassium 4.6 D (3.6-5.0) mmol/L Chloride 99.9 (98-107) mmol/L Carbon Dioxide 26 (22-30) mmol/L Anion Gap 18 mmol/L BUN 26 H (7-17) mg/dL Creatinine 1.0 (0.6-1.2) mg/dL Estimated GFR > 60 ml/min BUN/Creatinine Ratio 26 % Glucose 106 H (65-100) mg/dL Calcium 10.0 (8.4-10.2) mg/dL Total Bilirubin 0.40 (0.1-1.2) mg/dL AST 17 (5-40) units/L ALT 14 (7-56) units/L Alkaline Phosphatase 84 (35-129) units/L Total Protein 6.7 (6.3-8.2) g/dL Albumin 4.4 (3.9-5) g/dL Albumin/Globulin Ratio 1.9 % - Medical Decision Making Differential diagnosis, include but not limited to: Diverticulosis, internal hemorrhoid, malignancy, angiodysplasia, anal fissure Assessment and plan: 70-year-old female, who is afebrile, with reassuring vital signs, with no abdominal tenderness, rebound or guarding, hemodynamically stable, unremarkable abdominal exam, no complaint of abdominal pain at this time, no abdominal tenderness, brown stool that is guaiac negative on my exam, with a reported history of bloody stool, after resolution of constipation. Patient counseled regarding diet and lifestyle modifications, she will need to follow-up with her outpatient neuropsychology director shortly, she should avoid NSAIDs. Patient states that she "feels better", and reports that she is reliable to follow-up as an outpatient. Does not meet criteria for emergent GI consultation or colonoscopy or hospital admission at this time. Critical care attestation.: If time is entered above; I have spent that time in minutes in the direct care of this critically ill patient, excluding procedure time. ED Disposition Clinical Impression: History of constipation, History of GI bleed Disposition: DC-01 TO HOME OR SELFCARE Is pt being admited?: No Does the pt Need Aspirin: No Condition: Stable Additional Instructions: Avoid consumption of Motrin, ibuprofen, Naprosyn, Aleve, alcohol, heavy and spicy foods. Drink 3 to 4 cups of water per day indefinitely, and follow-up wi th a neuropsychology director within the next 7 to 10 days. Eat plenty of fiber, vegetables and lean protein. Patient most likely experiencing constipation and side effects of constipation, but she will need to closely follow-up with an outpatient neuropsychology director to determine need for colonoscopy, to exclude recurrent cancer, tumor, malignancy. Please return to the emergency room right away with new pain, worsening pain, migration of pain, rectal vomiting, change in mental status, confusion, carmen bility to tolerate liquid feeds, new, worsened or different symptoms not present on the initial emergency room evaluation. Referrals: OCTAVIO GUILLAUME MD [Staff Physician] - 3-5 Days [facility] [Provider Group] - 3-5 Days Forms: Accompanied Note
[2020-03-24 09:13] VITALS: BP 146/95
== END 2020-03-24 09:27 | disposition home or self-care (01) ==
LOC: ED 05:52
DX: K59.00 Constipation, unspecified (principal); K92.2 Gastrointestinal hemorrhage, unspecified; I10 Essential (primary) hypertension; E11.9 Type 2 diabetes mellitus without complications; F03.90 Unspecified dementia, unspecified severity, without behavioral disturbance, psychotic disturbance, mood disturbance, and anxiety; Z90.710 Acquired absence of both cervix and uterus; Z90.49 Acquired absence of other specified parts of digestive tract; Z90.89 Acquired absence of other organs; Z98.51 Tubal ligation status; Z86.73 Personal history of transient ischemic attack (TIA), and cerebral infarction without residual deficits; Z88.6 Allergy status to analgesic agent
CPT/HCPCS: 36415; 80053; 85025; 99283

== ENCOUNTER 2020-10-05 15:21 | Emergency (ER) | payer MEDICARE, OTHER ==
--- NOTE | 2020-10-05 18:05 | Event Note ---
ED Screening Note Date of service: 10/05/20 Time: 18:05 ED Screening Note: pt presents to ED with c/o nausea, dizziness, difficulty focusing and thinking, BRIONES. and generalized body aches and fever. Patient states that the symptoms started yesterday after receiving a second dose of moderna vaccine. Pmhx: HTN, HPLD, CVA 2 yrs ago This initial assessment/diagnostic orders/clinical plan/treatment(s) is/are subject to change based on patients health status, clinical progression and re-assessment by fellow clinical providers in the ED. Further treatment and workup at subsequent clinical providers discretion. Patient/guardian urged not to elope from the ED as their condition may be serious if not clinically assessed and managed. Initial orders include: CBC,CMP, UA, cxr, EKG, trop
--- NOTE | 2020-10-05 18:27 | XRay Report ---
CHEST 1 VIEW 1813 INDICATION / CLINICAL INFORMATION: fever COMPARISON: None available. FINDINGS: SUPPORT DEVICES: None HEART / MEDIASTINUM: No significant abnormality LUNGS / PLEURA: Artifact overlies the right lower chest. Lung palacio are clear of infiltrates. No pne umothorax. ADDITIONAL FINDINGS: No significant additional findings. Signer Name: Edson Hankins MD Signed: 10/05/2020 6:23 PM Workstation Name: [id number]
[2020-10-05 18:52] LABS: Basophils # (Auto) 0.1 K/mm3 (0.0-0.1); Basophils % (Auto) 1.1 % (0.0-1.8); Eosinophils % (Auto) 0.1 % (0.0-4.3); Hematocrit 37.4 % (30.3-42.9); Hemoglobin 12.5 gm/dl (10.1-14.3); Lymphocytes # (Auto) 0.6 K/mm3 (1.2-5.4); Lymphocytes % (Auto) 9.6 % (13.4-35.0); Mean Corpuscular HGB Conc 33 % (30-34); Mean Corpuscular Volume 81 fl (79-97); Monocytes # (Auto) 0.6 K/mm3 (0.0-0.8); Monocytes % (Auto) 8.7 % (0.0-7.3); Platelet Count 240 K/mm3 (140-440); Red Cell Distribution Width 14.3 % (13.2-15.2)
[2020-10-05 19:29] LABS: Alanine Aminotransferase 18 units/L (7-56); Albumin 4.1 g/dL (3.9-5); BUN/Creatinine Ratio 13; Blood Urea Nitrogen 10 mg/dL (7-17); Calcium 8.8 mg/dL (8.4-10.2); Hemolysis Index 6
[2020-10-05] MEDS ORDERED: KETOROLAC 60 MG/2 ML INJ IM ONE (22:12)
--- NOTE | 2020-10-05 22:14 | Emergency Department Report ---
ED General Adult HPI - General Chief complaint: Fever Stated complaint: SICK AFTER MEDERMA SHOT Time Seen by Provider: 10/05/20 22:07 Source: patient Mode of arrival: Wheelchair Limitations: No Limitations - History of Present Illness Initial comments: Patient is a 70-year-old F [place] female who got her second COVID-19 shot and was feeling ill. States for the past 2 days she has been having off-and-on fevers nausea and mild headache. She has not vomited or had diarrhea. Also complaining of body aches. - Related Data Previous Rx's Medication Instructions Recorded Last Taken Type hydroCHLOROthiazide [HCTZ] 12.5 mg PO QDAY #30 capsule 01/30/19 Unknown Rx Aspirin EC [Halfprin EC] 81 mg PO QDAY #60 tablet. 03/20/20 Unknown Rx AtorvaSTATin [Lipitor] 40 mg PO QHS #60 tablet 03/20/20 Unknown Rx Losartan [Cozaar] 100 mg PO QDAY #30 tablet 03/20/20 Unknown Rx hydrALAZINE [Apresoline TAB] 100 mg PO TID #90 tab 03/20/20 Unknown Rx Ketorolac [Toradol] 10 mg PO Q8H PRN #10 tablet 10/05/20 Unknown Rx Allergies Allergy/AdvReac Type Severity Reaction Status Date / Time codeine Allergy HALLUCINATI Verified 03/24/20 07:50 ONS lisinopril AdvReac Unknown Verified 03/24/20 07:50 ED Review of Systems ROS: Stated complaint: SICK AFTER MEDERMA SHOT Other details as noted in HPI Comment: All other systems reviewed and negative ED Past Medical Hx - Past Medical History Previous Medical History?: Yes Hx Hypertension: Yes Hx CVA: Yes (tia) Hx Diabetes: Yes Hx Dementia: Yes - Surgical History Past Surgical History?: Yes Additional Surgical History: colon surgery. TUBAL LIGATION. HYSTERECTOMY. TONSILLECTOMY - Social History Smoking Status: Never Smoker Substance Use Type: None - Medications Home Medications: Home Medications Medication Instructions Recorded Confirmed Last Taken Type hydroCHLOROthiazide [HCTZ] 12.5 mg PO QDAY #30 capsule 01/30/19 03/20/20 Unknown Rx Aspirin EC [Halfprin EC] 81 mg PO QDAY #60 tablet. 03/20/20 Unknown Rx AtorvaSTATin [Lipitor] 40 mg PO QHS #60 tablet 03/20/20 Unknown Rx Losartan [Cozaar] 100 mg PO QDAY #30 tablet 03/20/20 Unknown Rx hydrALAZINE [Apresoline TAB] 100 mg PO TID #90 tab 03/20/20 Unknown Rx Ketorolac [Toradol] 10 mg PO Q8H PRN #10 tablet 10/05/20 Unknown Rx ED Physical Exam - General Limitations: No Limitations General appearance: alert, in no apparent distress - Head Head exam: Present: atraumatic, normocephalic - Eye Eye exam: Present: normal appearance - ENT ENT exam: Present: mucous membranes moist - Neck Neck exam: Present: normal inspection - Respiratory Respiratory exam: Present: normal lung sounds bilaterally. Absent: respiratory distress, wheezes, rales, rhonchi - Cardiovascular Cardiovascular Exam: Present: regular rate, normal rhythm. Absent: systolic murmur, diastolic murmur, rubs, gallop - GI/Abdominal GI/Abdominal exam: Present: soft, normal bowel sounds - Extremities Exam Extremities exam: Present: normal inspection - Back Exam Back exam: Present: normal inspection - Neurological Exam Neurological exam: Present: alert, oriented X3 - Psychiatric Psychiatric exam: Present: normal affect, normal mood - Skin Skin exam: Present: warm, dry, intact, normal color. Absent: rash ED Course Vital Signs 10/05/20 15:40 Temperature 101.2 F H Pulse Rate 76 Respiratory 18 Rate Blood Pressure 179/76 O2 Sat by Pulse 96 Oximetry ED Medical Decision Making - Lab Data Result diagrams: 10/05/20 18:32 10/05/20 18:32 Lab Results 10/05/20 10/05/20 10/05/20 Range/Units 18:32 18:32 18:32 WBC 6.5 (4.5-11.0) K/mm3 RBC 4.60 (3.65-5.03) M/mm3 Hgb 12.5 (10.1-14.3) gm/dl Hct 37.4 (30.3-42.9) % MCV 81 (79-97) fl MCH 27 L (28-32) pg MCHC 33 (30-34) % RDW 14.3 (13.2-15.2) % Plt Count 240 (140-440) K/mm3 Lymph % (Auto) 9.6 L (13.4-35.0) % [place] % (Auto) 8.7 H (0.0-7.3) % Eos % (Auto) 0.1 (0.0-4.3) % Baso % (Auto) 1.1 (0.0-1.8) % Lymph # (Auto) 0.6 L (1.2-5.4) K/mm3 [place] # (Auto) 0.6 (0.0-0.8) K/mm3 Eos # (Auto) 0.0 (0.0-0.4) K/mm3 Baso # (Auto) 0.1 (0.0-0.1) K/mm3 Seg Neutrophils % 80.5 H (40.0-70.0) % Seg Neutrophils # 5.3 (1.8-7.7) K/mm3 Sodium 138 (137-145) mmol/L Potassium 3.8 (3.6-5.0) mmol/L Chloride 102.6 (98-107) mmol/L Carbon Dioxide 23 (22-30) mmol/L Anion Gap 16 mmol/L BUN 10 (7-17) mg/dL Creatinine 0.8 (0.6-1.2) mg/dL Estimated GFR > 60 ml/min BUN/Creatinine Ratio 13 % Glucose 88 (65-100) mg/dL Calcium 8.8 (8.4-10.2) mg/dL Magnesium 2.00 (1.7-2.3) mg/dL Total Bilirubin 0.50 (0.1-1.2) mg/dL AST 27 (5-40) units/L ALT 18 (7-56) units/L Alkaline Phosphatase 72 (35-129) units/L Troponin T < 0.010 (0.00-0.029) ng/mL Total Protein 7.0 (6.3-8.2) g/dL Albumin 4.1 (3.9-5) g/dL Albumin/Globulin Ratio 1.4 % Lipase 16 (13-60) units/L - Medical Decision Making Patient will be given medication for symptomatic relief and discharged home. Had a conversation with the patient regarding the fact that this was a good sign that her immune system was working. Vital signs are stable she is stable for discharge. Critical care attestation.: If time is entered above; I have spent that time in minutes in the direct care of this critically ill patient, excluding procedure time. ED Disposition Clinical Impression: Vaccine reaction Disposition: DC- TO HOME OR SELFCARE Is pt being admited?: No Does the pt Need Aspirin: No Condition: Stable Prescriptions: Ketorolac [Toradol] 10 mg PO Q8H PRN #10 tablet PRN Reason: Fever >101 Referrals: TITUS PACE MD [Primary Care Provider] - 3-5 Days
[2020-10-05 23:27] VITALS: BP 172/73
== END 2020-10-05 23:00 | disposition home or self-care (01) ==
LOC: ED 15:21
DX: R50.83 Postvaccination fever (principal); T50.B95A Adverse effect of other viral vaccines, initial encounter; I10 Essential (primary) hypertension; E11.9 Type 2 diabetes mellitus without complications; F03.90 Unspecified dementia, unspecified severity, without behavioral disturbance, psychotic disturbance, mood disturbance, and anxiety; Z86.73 Personal history of transient ischemic attack (TIA), and cerebral infarction without residual deficits; Z90.710 Acquired absence of both cervix and uterus; Z90.89 Acquired absence of other organs; Z98.51 Tubal ligation status; Z98.890 Other specified postprocedural states; Z79.899 Other long term (current) drug therapy; Z88.8 Allergy status to other drugs, medicaments and biological substances; Y92.89 Other specified places as the place of occurrence of the external cause
CPT/HCPCS: 36415; 71045; 80053; 83690; 83735; 84484; 85025; 96372; 99283; J1885

== ENCOUNTER 2021-11-28 12:35 | Emergency (ER) | payer MEDICARE, OTHER ==
[2021-11-28] MEDS ORDERED: ASPIRIN 325 MG TAB PO ONE ×2 (15:11→22:30)
[2021-11-28 15:59] LABS: Basophils # (Auto) 0.1 K/mm3 (0.0-0.1); Basophils % (Auto) 1.1 % (0.0-1.8); Eosinophils # (Auto) 0.1 K/mm3 (0.0-0.4); Eosinophils % (Auto) 1.3 % (0.0-4.3); Hematocrit 42.9 % (30.3-42.9); Hemoglobin 13.7 gm/dl (10.1-14.3); Lymphocytes # (Auto) 1.5 K/mm3 (1.2-5.4); Lymphocytes % (Auto) 28.1 % (13.4-35.0); Mean Corpuscular HGB Conc 32 % (30-34); Mean Corpuscular Volume 82 fl (79-97); Monocytes # (Auto) 0.4 K/mm3 (0.0-0.8); Monocytes % (Auto) 6.8 % (0.0-7.3); Platelet Count 291 K/mm3 (140-440); Red Blood Count 5.21 M/mm3 (3.65-5.03); Red Cell Distribution Width 13.9 % (13.2-15.2)
--- NOTE | 2021-11-28 16:03 | XRay Report ---
CHEST 2 VIEWS INDICATION / CLINICAL INFORMATION: numbness. COMPARISON: 10/05/2020 FINDINGS: SUPPORT DEVICES: None. HEART / MEDIASTINUM: No significant abnormality. LUNGS / PLEURA: No significant pulmonary or pleural abnormality. No pneumothorax. ADDITIONAL FINDINGS: No significant additional findings. IMPRESSION: 1. No acute findings. Signer Name: Vasile Quarles MD Signed: 11/28/2021 3:58 PM Workstation Name: [id number]
[2021-11-28 16:25] LABS: Alanine Aminotransferase 13 units/L (7-56); Albumin 4.9 g/dL (3.9-5); BUN/Creatinine Ratio 12; Blood Urea Nitrogen 12 mg/dL (7-17); Calcium 10.4 mg/dL (8.4-10.2); Hemolysis Index 3
[2021-11-28] MEDS ORDERED: hydrALAZINE 20 MG/1 ML INJ IV ONE (22:00)
[2021-11-28] MEDS ORDERED: cloNIDine 0.2 MG TAB PO ONE (22:21)
--- NOTE | 2021-11-28 23:06 | Emergency Department Report ---
ED General Adult HPI - General Chief complaint: High BP Stated complaint: HBP Time Seen by Provider: 11/28/21 21:57 Source: patient Mode of arrival: Ambulatory Limitations: No Limitations - History of Present Illness Initial comments: pt has HTN , has been having some numbness in her lfet hand today , took her HTN meds, but her BP was high 200s/100s so she came here no sob no chets pain -: hour(s) Location: upper extremity Severity scale (0 -10): 2 Consistency: intermittent Improves with: none Treatments Prior to Arrival: none - Related Data Previous Rx's Medication Instructions Recorded Last Taken Type hydroCHLOROthiazide [HCTZ] 12.5 mg PO QDAY #30 capsule 01/30/19 Unknown Rx Aspirin EC [Halfprin EC] 81 mg PO QDAY #60 tablet. 03/20/20 Unknown Rx AtorvaSTATin [Lipitor] 40 mg PO QHS #60 tablet 03/20/20 Unknown Rx Losartan [Cozaar] 100 mg PO QDAY #30 tablet 03/20/20 Unknown Rx hydrALAZINE [Apresoline TAB] 100 mg PO TID #90 tab 03/20/20 Unknown Rx Ketorolac [Toradol] 10 mg PO Q8H PRN #10 tablet 10/05/20 Unknown Rx Allergies Allergy/AdvReac Type Severity Reaction Status Date / Time codeine Allergy HALLUCINATI Verified 03/24/20 07:50 ONS lisinopril AdvReac Unknown Verified 03/24/20 07:50 ED Review of Systems ROS: Stated complaint: HBP Other details as noted in HPI Constitutional: denies: chills, fever Eyes: denies: eye pain, eye discharge, vision change ENT: denies: ear pain, throat pain Respiratory: denies: cough, shortness of breath, wheezing Cardiovascular: denies: chest pain, palpitations Endocrine: no symptoms reported Gastrointestinal: denies: abdominal pain, nausea, diarrhea Genitourinary: denies: urgency, dysuria, discharge Musculoskeletal: denies: back pain, joint swelling, arthralgia Skin: denies: rash, lesions Neurological: denies: headache, weakness, paresthesias Psychiatric: denies: anxiety, depression Hematological/Lymphatic: denies: easy bleeding, easy bruising ED Past Medical Hx - Past Medical History Hx Hypertension: Yes Hx CVA: Yes (tia) Hx Diabetes: Yes Hx Dementia: Yes - Surgical History Additional Surgical History: colon surgery. TUBAL LIGATION. HYSTERECTOMY. TONSILLECTOMY - Social History Smoking Status: Never Smoker Substance Use Type: None - Medications Home Medications: Home Medications Medication Instructions Recorded Confirmed Last Taken Type hydroCHLOROthiazide [HCTZ] 12.5 mg PO QDAY #30 capsule 01/30/19 03/20/20 Unknown Rx Aspirin EC [Halfprin EC] 81 mg PO QDAY #60 tablet.dr 03/20/20 Unknown Rx AtorvaSTATin [Lipitor] 40 mg PO QHS #60 tablet 03/20/20 Unknown Rx Losartan [Cozaar] 100 mg PO QDAY #30 tablet 03/20/20 Unknown Rx hydrALAZINE [Apresoline TAB] 100 mg PO TID #90 tab 03/20/20 Unknown Rx Ketorolac [Toradol] 10 mg PO Q8H PRN #10 tablet 10/05/20 Unknown Rx ED Physical Exam - General Limitations: No Limitations General appearance: alert, in no apparent distress - Head Head exam: Present: atraumatic, normocephalic - Eye Eye exam: Present: normal appearance - ENT ENT exam: Present: mucous membranes moist - Neck Neck exam: Present: normal inspection - Respiratory Respiratory exam: Present: normal lung sounds bilaterally. Absent: respiratory distress - Cardiovascular Cardiovascular Exam: Present: regular rate, normal rhythm. Absent: systolic murmur, diastolic murmur, rubs, gallop - GI/Abdominal GI/Abdominal exam: Present: soft, normal bowel sounds - Extremities Exam Extremities exam: Present: normal inspection - Back Exam Back exam: Present: normal inspection - Neurological Exam Neurological exam: Present: alert, oriented X3 - Psychiatric Psychiatric exam: Present: normal affect, normal mood - Skin Skin exam: Present: warm, dry, intact, normal color. Absent: rash ED Course Vital Signs 11/28/21 11/28/21 11/28/21 15:09 22:11 22:12 Temperature 98.5 F Pulse Rate 65 98 H Respiratory 16 Rate Blood Pressure 185/94 211/76 [Left] O2 Sat by Pulse 100 100 Oximetry 11/28/21 23:11 Temperature Pulse Rate 50 L Respiratory Rate Blood Pressure 177/83 [Left] O2 Sat by Pulse Oximetry ED Medical Decision Making - Lab Data Result diagrams: 11/28/21 15:46 11/28/21 15:46 - EKG Data -: EKG Interpreted by Me EKG shows normal: sinus rhythm Rate: bradycardia - EKG Data Interpretation: no acute changes - Radiology Data Radiology results: report reviewed, image reviewed - Medical Decision Making work up negative , clondine given BP is 170 /80 Critical care attestation.: If time is entered above; I have spent that time in minutes in the direct care of this critically ill patient, excluding procedure time. ED Disposition Clinical Impression: Uncontrolled hypertension Disposition: HOME / SELF CARE / HOMELESS Is pt being admited?: No Does the pt Need Aspirin: No Condition: Stable Instructions: Hypertension, Adult, [id number], Managing Your Hypertension, Hypertension (ED) Referrals: PRIMARY CARE, [Primary Care Provider] - 3-5 Days
[2021-11-28 23:35] VITALS: BP 130/58
--- NOTE | 2021-11-29 08:56 | Electrocardiograph Report ---
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
--- NOTE | 2021-11-29 08:57 | Electrocardiograph Report ---
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
== END 2021-11-28 23:37 | disposition home or self-care (01) ==
LOC: ED 12:35
DX: I10 Essential (primary) hypertension (principal); E11.9 Type 2 diabetes mellitus without complications; Z86.73 Personal history of transient ischemic attack (TIA), and cerebral infarction without residual deficits; F03.90 Unspecified dementia, unspecified severity, without behavioral disturbance, psychotic disturbance, mood disturbance, and anxiety; Z91.09 Other allergy status, other than to drugs and biological substances; Z79.899 Other long term (current) drug therapy
CPT/HCPCS: 36415; 71046; 80053; 84484; 85025; 93005; 99284; J0360

== ENCOUNTER 2022-01-06 16:11 | Observation (INO) | payer MEDICARE, OTHER ==
--- NOTE | 2022-01-06 16:49 | Emergency Department Report ---
Chief Complaint: Weakness Stated Complaint: BLOOD PRESSURE Time Seen by Provider: 01/06/22 16:46 - HPI History of Present Illness: around 12 noon today, patient started to have numbness to right side of face, right fingers and problems getting her words out. hx of tia and states that this is how her symptoms started then also. - ROS Review of Systems: c/o unilateral numbness and generalized not feeling well. - Exam Vital Signs: Vital Signs 01/06/22 16:14 Temperature 98.0 F Pulse Rate 70 Respiratory 22 Rate Blood Pressure 143/81 O2 Sat by Pulse 99 Oximetry MSE screening note: Focused history and physical exam performed. Due to findings the following was ordered:ed suspected stroke protocol patient will be examined by md in back. ED Disposition for MSE Condition: Stable
--- NOTE | 2022-01-06 16:50 | Emergency Department Report ---
ED Neuro Deficit HPI - General Chief Complaint: Weakness Stated Complaint: BLOOD PRESSURE Time Seen by Provider: 01/06/22 16:46 Source: patient Mode of arrival: Ambulatory Limitations: No Limitations - History of Present Illness Initial Comments: Is a 71-year-old female history of previous stroke, left-sided deficits who presents emergency department complaint of dysarthria. Patient reports her symptoms started at noon. She reports feeling unwell, trouble talking. She is unable to tell me when her previous stroke was although she states it occured here. - Related Data Home Medications: Previous Rx's Medication Instructions Recorded Last Taken Type hydroCHLOROthiazide [HCTZ] 12.5 mg PO QDAY #30 capsule 01/30/19 Unknown Rx Aspirin EC [Halfprin EC] 81 mg PO QDAY #60 tablet. 03/20/20 Unknown Rx AtorvaSTATin [Lipitor] 40 mg PO QHS #60 tablet 03/20/20 Unknown Rx Losartan [Cozaar] 100 mg PO QDAY #30 tablet 03/20/20 Unknown Rx hydrALAZINE [Apresoline TAB] 100 mg PO TID #90 tab 03/20/20 Unknown Rx Ketorolac [Toradol] 10 mg PO Q8H PRN #10 tablet 10/05/20 Unknown Rx Allergies/Adverse Reactions: Allergies Allergy/AdvReac Type Severity Reaction Status Date / Time codeine Allergy HALLUCINATI Verified 03/24/20 07:50 ONS lisinopril AdvReac Unknown Verified 03/24/20 07:50 ED Review of Systems ROS: Stated complaint: BLOOD PRESSURE Other details as noted in HPI Constitutional: denies: chills, fever Eyes: denies: eye pain, eye discharge, vision change ENT: denies: ear pain, throat pain Respiratory: denies: cough, shortness of breath, wheezing Cardiovascular: denies: chest pain, palpitations Endocrine: no symptoms reported Gastrointestinal: denies: abdominal pain, nausea, diarrhea Genitourinary: denies: urgency, dysuria, discharge Musculoskeletal: denies: back pain, joint swelling, arthralgia Skin: denies: rash, lesions Neurological: weakness, paresthesias. denies: headache Psychiatric: denies: anxiety, depression Hematological/Lymphatic: denies: easy bleeding, easy bruising ED Past Medical Hx - Past Medical History Hx Hypertension: Yes Hx CVA: Yes (tia) Hx Diabetes: Yes Hx Dementia: Yes - Surgical History Additional Surgical History: colon surgery. TUBAL LIGATION. HYSTERECTOMY. TONSILLECTOMY - Social History Smoking Status: Never Smoker - Medications Home Medications: Home Medications Medication Instructions Recorded Confirmed Last Taken Type hydroCHLOROthiazide [HCTZ] 12.5 mg PO QDAY #30 capsule 01/30/19 03/20/20 Unknown Rx Aspirin EC [Halfprin EC] 81 mg PO QDAY #60 tablet. 03/20/20 Unknown Rx AtorvaSTATin [Lipitor] 40 mg PO QHS #60 tablet 03/20/20 Unknown Rx Losartan [Cozaar] 100 mg PO QDAY #30 tablet 03/20/20 Unknown Rx hydrALAZINE [Apresoline TAB] 100 mg PO TID #90 tab 03/20/20 Unknown Rx Ketorolac [Toradol] 10 mg PO Q8H PRN #10 tablet 10/05/20 Unknown Rx ED Neuro Physical Exam - General Limitations: No Limitations General appearance: alert, in no apparent distress Suspected Stroke: Yes - Head Head exam: Present: atraumatic, normocephalic - Eye Eye exam: Present: normal appearance - ENT ENT exam: Present: normal exam, mucous membranes moist - Neck Neck exam: Present: normal inspection - Respiratory Respiratory exam: Present: normal lung sounds bilaterally. Absent: respiratory distress - Cardiovascular Cardiovascular Exam: Present: regular rate, normal rhythm. Absent: systolic murmur, diastolic murmur, rubs, gallop - GI/Abdominal GI/Abdominal exam: Present: soft, normal bowel sounds - Extremities Exam Extremities exam: Present: normal inspection - Back Exam Back exam: Present: normal inspection - Neurological Exam Neurological exam: Present: alert, oriented X3 - NIHSS Assessment Interval: Baseline 1a. Level of Consciousness: alert/keenly responsive 1b. LOC Questions: answers both correctly 1c. LOC Commands: performs tasks correctly 2. Best Gaze: normal 3. Visual: no visual loss 4. Facial Palsy: normal symmetrical movement 5b. Motor Arm Right: no drift 5a. Motor Arm Left: no drift 6a. Motor Leg Left: no drift 6b. Motor Leg Right: no drift 7. Limb Ataxia: absent 8. Sensory: normal 9. Best Language: no aphasia 10. Dysarthria: normal 11. Extinction/Inattention: no abnormality Total Score: 0 Stroke Severity: No Stroke Symptoms - Psychiatric Psychiatric exam: Present: normal affect, normal mood - Skin Skin exam: Present: warm, dry, intact, normal color. Absent: rash ED Course Vital Signs 01/06/22 01/06/22 01/06/22 16:14 19:51 20:01 Temperature 98.0 F 98.5 F Pulse Rate 70 54 L 54 L Respiratory 22 24 22 Rate Blood Pressure 143/81 Blood Pressure 172/66 [Left] O2 Sat by Pulse 99 98 94 Oximetry - Reevaluation(s) Reevaluation #1: 01/06/22 20:17 Patient having no additional worsening of symptoms. CT a does not reveal any large vessel occlusion. Discussed with neurology on-call who recommended aspirin and Plavix and patient was given this. Patient has been admitted for further management of likely TIA. - Consultations Consultation #1: 01/06/22 Neurology was consulted emergently for concern for acute CVA. They recommended CT head without contrast and if negative aspirin and Plavix as well as CTA head and neck to rule out large vessel occlusion. Patient is not a candidate for tPA given onset of symptoms has been over 4-1/2 hours. - Lab Data Result diagrams: 01/06/22 19:17 01/06/22 19:17 Lab Results 01/06/22 01/06/22 01/06/22 Range/Units 16:25 19:17 19:17 WBC 5.5 (4.5-11.0) K/mm3 RBC 4.86 (3.65-5.03) M/mm3 Hgb 13.2 (10.1-14.3) gm/dl Hct 40.1 (30.3-42.9) % MCV 82 (79-97) fl MCH 27 L (28-32) pg MCHC 33 (30-34) % RDW 14.2 (13.2-15.2) % Plt Count 289 (140-440) K/mm3 Lymph % (Auto) 18.6 (13.4-35.0) % [place] % (Auto) 6.1 (0.0-7.3) % Eos % (Auto) 1.1 (0.0-4.3) % Baso % (Auto) 0.7 (0.0-1.8) % Lymph # (Auto) 1.0 L (1.2-5.4) K/mm3 [place] # (Auto) 0.3 (0.0-0.8) K/mm3 Eos # (Auto) 0.1 (0.0-0.4) K/mm3 Baso # (Auto) 0.0 (0.0-0.1) K/mm3 Seg Neutrophils % 73.5 H (40.0-70.0) % Seg Neutrophils # 4.0 (1.8-7.7) K/mm3 PT 13.7 (12.2-14.9) Sec. INR 0.95 (0.87-1.13) APTT 34.4 (24.2-36.6) Sec. Thrombin Time 17.1 (15.1-19.6) Sec. Sodium (137-145) mmol/L Potassium (3.6-5.0) mmol/L Chloride (98-107) mmol/L Carbon Dioxide (22-30) mmol/L Anion Gap mmol/L BUN (7-17) mg/dL Creatinine (0.6-1.2) mg/dL Estimated GFR ml/min BUN/Creatinine Ratio % Glucose (65-100) mg/dL POC Glucose 106 H (70-105) mg/dL Calcium (8.4-10.2) mg/dL Total Bilirubin (0.1-1.2) mg/dL AST (5-40) units/L ALT (7-56) units/L Alkaline Phosphatase (35-129) units/L Total Creatine Kinase (30-135) units/L CK-MB (CK-2) (0.0-4.0) ng/mL CK-MB (CK-2) Rel Index (0-4) Troponin T (0.00-0.029) ng/mL Total Protein (6.3-8.2) g/dL Albumin (3.9-5) g/dL Albumin/Globulin Ratio % Urine Color (Yellow) Urine Turbidity (Clear) Urine pH (5.0-7.0) Ur Specific [place] (1.003-1.030) Urine Protein (Negative) mg/dL Urine Glucose (UA) (Negative) mg/dL Urine Ketones (Negative) mg/dL Urine Blood (Negative) Urine Nitrite (Negative) Urine Bilirubin (Negative) Urine Urobilinogen (<2.0) mg/dL Ur Leukocyte Esterase (Negative) Urine WBC (Auto) (0.0-6.0) /HPF Urine RBC (Auto) 07/11/22 07/11/22 07/11/22 Range/Units 19:17 19:17 Unknown WBC (4.5-11.0) K/mm3 RBC (3.65-5.03) M/mm3 Hgb (10.1-14.3) gm/dl Hct (30.3-42.9) % MCV (79-97) fl MCH (28-32) pg MCHC (30-34) % RDW (13.2-15.2) % Plt Count (140-440) K/mm3 Lymph % (Auto) (13.4-35.0) % [place] % (Auto) (0.0-7.3) % Eos % (Auto) (0.0-4.3) % Baso % (Auto) (0.0-1.8) % Lymph # (Auto) (1.2-5.4) K/mm3 [place] # (Auto) (0.0-0.8) K/mm3 Eos # (Auto) (0.0-0.4) K/mm3 Baso # (Auto) (0.0-0.1) K/mm3 Seg Neutrophils % (40.0-70.0) % Seg Neutrophils # (1.8-7.7) K/mm3 PT (12.2-14.9) Sec. INR (0.87-1.13) APTT (24.2-36.6) Sec. Thrombin Time (15.1-19.6) Sec. Sodium 143 (137-145) mmol/L Potassium 4.9 (3.6-5.0) mmol/L Chloride 107.0 (98-107) mmol/L Carbon Dioxide 25 (22-30) mmol/L Anion Gap 16 mmol/L BUN 18 H (7-17) mg/dL Creatinine 1.0 (0.6-1.2) mg/dL Estimated GFR > 60 ml/min BUN/Creatinine Ratio 18 % Glucose 108 H (65-100) mg/dL POC Glucose (70-105) mg/dL Calcium 10.2 (8.4-10.2) mg/dL Total Bilirubin 0.30 (0.1-1.2) mg/dL AST 23 (5-40) units/L ALT 13 (7-56) units/L Alkaline Phosphatase 82 (35-129) units/L Total Creatine Kinase 169 H (30-135) units/L CK-MB (CK-2) 2.2 (0.0-4.0) ng/mL CK-MB (CK-2) Rel Index 1.3 (0-4) Troponin T < 0.010 (0.00-0.029) ng/mL Total Protein 7.2 (6.3-8.2) g/dL Albumin 4.9 (3.9-5) g/dL Albumin/Globulin Ratio 2.1 % Urine Color Straw (Yellow) Urine Turbidity Clear (Clear) Urine pH 5.0 (5.0-7.0) Ur Specific [place] 1.044 H (1.003-1.030) Urine Protein <15 mg/dl (Negative) mg/dL Urine Glucose (UA) Neg (Negative) mg/dL Urine Ketones Neg (Negative) mg/dL Urine Blood Neg (Negative) Urine Nitrite Neg (Negative) Urine Bilirubin Neg (Negative) Urine Urobilinogen < 2.0 (<2.0) mg/dL Ur Leukocyte Esterase Neg (Negative) Urine WBC (Auto) < 1.0 (0.0-6.0) /HPF Urine RBC (Auto) Not Reportable - Medical Decision Making Patient is a 71-year-old female presents emergency department after noting dysarthria and feeling funny at approximately noon. At the time of patient presentation here she is already 4-1/2 hours since symptoms and does not meet criteria to receive tPA. I have spoken to neuro neurology on-call and they recommend if CT head looks negative the patient should receive 81 of aspirin, 75 of Plavix. Plan for admission if there is no large vessel occlusion. Critical Care Time: Yes Critical care time in (mins) excluding proc time.: 45 Critical care attestation.: If time is entered above; I have spent that time in minutes in the direct care of this critically ill patient, excluding procedure time. ED Disposition Clinical Impression: TIA (transient ischemic attack) Disposition: ADMITTED INPATIENT Is pt being admited?: Yes Does the pt Need Aspirin: Yes Condition: Serious
--- NOTE | 2022-01-06 17:03 | Consultation ---
History of Present Illness - Reason for Consult Consult date: 01/06/22 - History of Present Illness [facility] Consult Note # Demographics Consult Type: Acute Stroke Level 2 (4.5-24 hrs) Patient Location: Emergency Room First Name: Cammy Last Name: Rhys Date of : 1950 Age: 71 Gender: Female Facility: [facility] Time of Initial Page (Eastern Time): 01/06/2022, 16:53 Time of Return Call (Eastern Time): 01/06/2022, 16:54 # HPI History: 71yo woman who presents with slurred speech and generalized weakness. She is speaking better at this time. She has no residual deficit at this time. Last Known Normal: 12PM Duration: resolved # Assessment Impression: Transient Ischemic Attack # Plan Thrombolytic/Intervention: NOT IV Thrombolysis or IA Intervention candidate Target Blood Pressure: SBP < 220 Labs: lipid panel Imaging: (urgency: STAT): CT Angiogram Head and CT Angiogram Neck AND call back with results if abnormal Imaging: (urgency: routine): MRI Brain without contrast Diagnostic Test: echo without bubble study Therapy/Evaluation: NPO until swallow evaluation PT/OT evaluation speech/swallow consultation Medication: aspirin 81 mg PLUS clopidogrel (Plavix) 75 mg for 21 days, then monotherapy therafter DVT Prophylaxis: SCD chemical DVT prophylaxis Other: LDL < 70 If patient has any neurological deterioration please call me back immediately permissive hypertension telemetry monitoring I have discussed my recommendations with the referring provider Disposition: admit Medications and Allergies Allergies Allergy/AdvReac Type Severity Reaction Status Date / Time codeine Allergy HALLUCINATI Verified 03/24/20 07:50 ONS lisinopril AdvReac Unknown Verified 03/24/20 07:50 Home Medications Medication Instructions Recorded Confirmed Last Taken Type hydroCHLOROthiazide [HCTZ] 12.5 mg PO QDAY #30 capsule 01/30/19 03/20/20 Unknown Rx Aspirin EC [Halfprin EC] 81 mg PO QDAY #60 tablet. 03/20/20 Unknown Rx AtorvaSTATin [Lipitor] 40 mg PO QHS #60 tablet 03/20/20 Unknown Rx Losartan [Cozaar] 100 mg PO QDAY #30 tablet 03/20/20 Unknown Rx hydrALAZINE [Apresoline TAB] 100 mg PO TID #90 tab 03/20/20 Unknown Rx Ketorolac [Toradol] 10 mg PO Q8H PRN #10 tablet 10/05/20 Unknown Rx Exam - Constitutional Vitals: Temp Pulse Resp BP Pulse Ox 98.0 F 70 22 143/81 99 01/06/22 16:14 01/06/22 16:14 01/06/22 16:14 01/06/22 16:14 01/06/22 16:14
--- NOTE | 2022-01-06 17:31 | Cat Scan Report ---
CT head/brain wo con INDICATION / CLINICAL INFORMATION: 71 years Female; Stroke symptoms. TECHNIQUE: Routine CT head without contrast. All CT scans at this location are performed using CT dos e reduction for ALARA by means of automated exposure control. COMPARISON: 02/28/2020 FINDINGS: BRAIN / INTRACRANIAL CONTENTS: No acute hemorrhage, mass effect, midline shift, hydrocephalus, or acu te, large territorial infarct. Mild, diffuse cerebral atrophy. Mild degree of hippocampal atrophy suggested bilaterally. There are minimal areas of decreased attenuation in the white matter of the cerebral hemispheres. The se are nonspecific findings and may be related to microangiopathy (hypertension, diabetes, atheroscle rosis), given the patient's age. It might be difficult to evaluate for small areas of ischemia withou t diffusion imaging by MRI. CRANIOCERVICAL JUNCTION: No significant abnormality. ORBITS: No significant abnormality of visualized orbits. SINUSES / MASTOIDS: Visualized paranasal sinuses and mastoid air cells are essentially clear. ADDITIONAL FINDINGS: Minimal atherosclerotic disease is seen in the anterior circulation. IMPRESSION: 1. No focal mass, hemorrhage, hydrocephalus, or acute, large territorial infarct. CODE STROKE: Exam Completed (MODELING ANALYST/CDT): 01/06/2022 4:12 PM Exam Reviewed (MODELING ANALYST/CDT): 4:15 PM Attempted Time of Communication (MODELING ANALYST/CDT): 4:26 PM Licensed Practitioner Receiving Report: Dr. Bates Signer Name: Henry Salgado MD, III Signed: 01/06/2022 5:27 PM Workstation Name: [id number]
--- NOTE | 2022-01-06 17:48 | Cat Scan Report ---
CT angio neck INDICATION / CLINICAL INFORMATION: 71 years Female; dysarthrria. TECHNIQUE: Thin cut axial images obtained through the head during IV bolus contrast administration. S agittal, coronal, and 3 plane MIP reconstructions performed by the technologist. NASCET type criteria used evaluate stenoses. All CT scans at this location are performed using CT dose reduction for ALAR A by means of automated exposure control. COMPARISON: None available. FINDINGS: CAROTID ARTERIES: There is continued atherosclerotic plaque involving proximal internal carotid arter ies bilaterally at. There is again approximately 10-20% stenosis on the right at. There is no signifi cant developing stenosis on the left. 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 Additionally, there appears to be mild narrowing of the origin. The right vertebral artery is dominant without significan t focal stenosis. ARCH: There is mild calcification involving aortic arch. However, there is no clear evidence of signi ficant stenosis involving origins of the arch vessels. ADDITIONAL FINDINGS: Remainder of the surrounding soft tissues are grossly normal. IMPRESSION: There is mild atherosclerotic plaque involving the proximal internal carotid arteries with continued mild-20% stenosis on the right. 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 Signer Name: Calderon De La Cruz MD Signed: 01/06/2022 5:44 PM Workstation Name: [id number]
--- NOTE | 2022-01-06 17:54 | Cat Scan Report ---
CT angio head INDICATION / CLINICAL INFORMATION: 71 years Female; stroke sx. TECHNIQUE: Thin cut axial images obtained through the head during IV bolus contrast administration. S agittal, coronal, and 3 plane MIP reconstructions performed by the technologist. NASCET type criteria used evaluate stenoses. Automated exposure control utilized for radiation reduction purposes. COMPARISON: None available. FINDINGS: INTERNAL CAROTID ARTERIES: There is no significant developing stenosis involving intracranial ICAs by NASCET to criteria. VERTEBROBASILAR SYSTEM: There is developmental hypoplasia of the distal left vertebral artery at. 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 There is no significant foca l stenosis. CEREBRAL ARTERIES: The proximal cerebral arteries and adjacent segments appear to demonstrate appropr iate caliber without clear evidence of significant focal stenosis or large vessel occlusion amenable to endovascular treatment. ANEURYSM: None identified. ADDITIONAL FINDINGS: Remainder of the surrounding soft tissues are grossly normal. 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 There is no clear CT evidence of developing large vessel occlusion amenable to endovascular treatment.. Correlation be nee ded in this patient with given history of unspecified "stroke symptoms". Signer Name: Calderon De La Cruz MD Signed: 01/06/2022 5:50 PM Workstation Name: [id number]
--- NOTE | 2022-01-06 18:01 | XRay Report ---
XR chest 1V ap INDICATION / CLINICAL INFORMATION: possible stroke. COMPARISON: 11/28/2021 FINDINGS: SUPPORT DEVICES: None. HEART /PULMONARY VASCULATURE: No significant abnormality. LUNGS / PLEURA: No significant pulmonary or pleural abnormality. No pneumothorax. ADDITIONAL FINDINGS: No significant additional findings. IMPRESSION: 1. No acute findings. Signer Name: Curtis Villatoro MD Signed: 01/06/2022 5:56 PM Workstation Name: [id number]
[2022-01-06] MEDS ORDERED: ASPIRIN 81 MG TAB CHEW PO ONE (18:17)
[2022-01-06] MEDS ORDERED: CLOPIDOGREL 75 MG TAB PO ONE (18:17)
--- NOTE | 2022-01-06 18:49 | History and Physical Report ---
History of Present Illness Date of examination: 01/06/22 Date of admission: 01/06/22 Chief complaint: -Unable to talk since morning History of present illness: Is a 71-year-old female history of previous stroke, left-sided deficits who presents emergency department complaint of dysarthria. Patient reports her symptoms started at noon. She reports feeling unwell, trouble talking. She is unable to tell me when her previous stroke was although she states it occured here. - Related Data Home Medications: Previous Rx's Medication Instructions Recorded Last Taken Type hydroCHLOROthiazide [HCTZ] 12.5 mg PO QDAY #30 capsule 01/30/19 Unknown Rx Aspirin EC [Halfprin EC] 81 mg PO QDAY #60 tablet. 03/20/20 Unknown Rx AtorvaSTATin [Lipitor] 40 mg PO QHS #60 tablet 03/20/20 Unknown Rx Losartan [Cozaar] 100 mg PO QDAY #30 tablet 03/20/20 Unknown Rx hydrALAZINE [Apresoline TAB] 100 mg PO TID #90 tab 03/20/20 Unknown Rx Ketorolac [Toradol] 10 mg PO Q8H PRN #10 tablet 10/05/20 Unknown Rx Allergies/Adverse Reactions: Allergies Allergy/AdvReac Type Severity Reaction Status Date / Time codeine Allergy HALLUCINATI Verified 03/24/20 07:50 ONS lisinopril AdvReac Unknown Verified 03/24/20 07:50 - Past Medical History Hx Hypertension: Yes Hx CVA: Yes (tia) Hx Diabetes: Yes Hx Dementia: Yes - Surgical History Additional Surgical History: colon surgery. TUBAL LIGATION. HYSTERECTOMY. TONSILLECTOMY - Social History Smoking Status: Never Smoker - Medications Home Medications: Home Medications Medication Instructions Recorded Confirmed Last Taken Type hydroCHLOROthiazide [HCTZ] 12.5 mg PO QDAY #30 capsule 01/30/19 03/20/20 Unknown Rx Aspirin EC [Halfprin EC] 81 mg PO QDAY #60 tablet. 03/20/20 Unknown Rx AtorvaSTATin [Lipitor] 40 mg PO QHS #60 tablet 03/20/20 Unknown Rx Losartan [Cozaar] 100 mg PO QDAY #30 tablet 03/20/20 Unknown Rx hydrALAZINE [Apresoline TAB] 100 mg PO TID #90 tab 03/20/20 Unknown Rx Ketorolac [Toradol] 10 mg PO Q8H PRN #10 tablet 10/05/20 Unknown Rx Review of Systems ROS: Stated complaint: BLOOD PRESSURE Other details as noted in HPI Constitutional: denies: chills, fever Eyes: denies: eye pain, eye discharge, vision change ENT: denies: ear pain, throat pain Respiratory: denies: cough, shortness of breath, wheezing Cardiovascular: denies: chest pain, palpitations Endocrine: no symptoms reported Gastrointestinal: denies: abdominal pain, nausea, diarrhea Genitourinary: denies: urgency, dysuria, discharge Musculoskeletal: denies: back pain, joint swelling, arthralgia Skin: denies: rash, lesions Neurological: weakness, paresthesias. denies: headache Psychiatric: denies: anxiety, depression Hematological/Lymphatic: denies: easy bleeding, easy bruising Medications and Allergies Allergies Allergy/AdvReac Type Severity Reaction Status Date / Time codeine Allergy HALLUCINATI Verified 03/24/20 07:50 ONS lisinopril AdvReac Unknown Verified 03/24/20 07:50 Home Medications Medication Instructions Recorded Confirmed Last Taken Type Aspirin EC [Halfprin EC] 81 mg PO QDAY #60 tablet. 03/20/20 01/07/22 1 Day Ago Rx ~01/06/22 Losartan [Cozaar] 100 mg PO QDAY #30 tablet 03/20/20 01/07/22 1 Day Ago Rx ~01/06/22 Pitavastatin Calcium [LiVALO] 1 tab PO DAILY 01/07/22 01/07/22 1 Day Ago History ~01/06/22 amLODIPine [Norvasc] 20 mg PO DAILY 01/07/22 01/07/22 1 Day Ago History ~01/06/22 Exam - Constitutional Vitals: Temp Pulse Resp BP Pulse Ox 98.0 F 70 22 143/81 99 01/06/22 16:14 01/06/22 16:14 01/06/22 16:14 01/06/22 16:14 01/06/22 16:14 General appearance: Present: no acute distress, well-nourished - EENT Eyes: Present: PERRL ENT: hearing intact, clear oral mucosa - Neck Neck: Present: supple, normal ROM - Respiratory Respiratory effort: normal Respiratory: bilateral: CTA - Cardiovascular Rhythm: regular (78) Heart Sounds: Present: S1 & S2. Absent: rub, click - Extremities Extremities: pulses symmetrical, No edema Peripheral Pulses: within normal limits - Abdominal General gastrointestinal: Present: soft, non-tender, non-distended, normal bowel sounds Female genitourinary: Present: normal - Integumentary Integumentary: Present: clear, warm, dry - Musculoskeletal Musculoskeletal: gait normal, strength equal bilaterally - Psychiatric Psychiatric: appropriate mood/affect, intact judgment & insight - Neurologic Neurologic: CNII-XII intact, moves all extremities, other (Dysarthria. Which is resolved) Results - Labs CBC & Chem 7: 01/06/22 19:17 01/06/22 19:17 Assessment and Plan Advance Directives: Yes (Full code) VTE prophylaxis?: Chemical Plan of care discussed with patient/family: Yes - Patient Problems (1) TIA (transient ischemic attack) Current Visit: Yes Status: Acute Plan to address problem: More in favor of TIA Dysarthria resolved Able to move all 4 extremities Elevated MRI and echocardiogram. (2) HTN (hypertension) Current Visit: Yes Status: Chronic Qualifiers: Hypertension type: primary hypertension Qualified Code(s): I10 - Essential (primary) hypertension Plan to address problem: Continue antihypertensives and adjust medications (3) T2DM (type 2 diabetes mellitus) Current Visit: Yes Status: Chronic Qualifiers: Diabetes mellitus care home insulin use: unspecified care home insulin use status Plan to address problem: Coverage for now Check hemoglobin A1c (4) Dyslipidemia Current Visit: Yes Status: Chronic Plan to address problem: Patient started on statins (5) DVT prophylaxis Current Visit: No Status: Acute Plan to address problem: On heparin and GI prophylaxis (6) Advance care planning Current Visit: Yes Status: Acute Plan to address problem: Disease management discussed, diagnosis prognosis and care plan discussed. Patient acknowledges care plan and patient is full code. Care plan +30 minutes.
[2022-01-06] MEDS ORDERED: ONDANSETRON 4 MG/2 ML INJ IV PRN (19:33)
[2022-01-06] MEDS ORDERED: MORPHINE 2 MG/1 ML INJ IV PRN (19:33)
[2022-01-06] MEDS ORDERED: oxyCODONE /ACETAMINOPHEN 5-325MG TAB PO PRN (19:33)
[2022-01-06] MEDS ORDERED: METOCLOPRAMIDE 10 MG/2 ML INJ IV PRN (19:33)
[2022-01-06] MEDS ORDERED: SODIUM CHLORIDE 0.9% 1000 ML 1,000 ML IV SCH (19:45)
[2022-01-06 19:46] LABS: Basophils % (Auto) 0.7 % (0.0-1.8); Eosinophils # (Auto) 0.1 K/mm3 (0.0-0.4); Eosinophils % (Auto) 1.1 % (0.0-4.3); Hematocrit 40.1 % (30.3-42.9); Hemoglobin 13.2 gm/dl (10.1-14.3); Lymphocytes % (Auto) 18.6 % (13.4-35.0); Mean Corpuscular HGB Conc 33 % (30-34); Mean Corpuscular Volume 82 fl (79-97); Monocytes # (Auto) 0.3 K/mm3 (0.0-0.8); Monocytes % (Auto) 6.1 % (0.0-7.3); Platelet Count 289 K/mm3 (140-440); Red Blood Count 4.86 M/mm3 (3.65-5.03); Red Cell Distribution Width 14.2 % (13.2-15.2)
[2022-01-06 19:58] LABS: Bilirubin,Urine NEG (Negative); Blood,Urine NEG (Negative); Color,Urine Straw (Yellow); Protein,Urine <15 mg/dL mg/dL (Negative); Urobilinogen,Urine < 2.0 mg/dL (<2.0); WBC,Urine < 1.0 /HPF (0.0-6.0)
[2022-01-06 20:00] LABS: INR 0.95 (0.87-1.13)
[2022-01-06 20:01] LABS: Partial Thromboplastin Time 34.4 Sec. (24.2-36.6); Thrombin Time 17.1 Sec. (15.1-19.6)
[2022-01-06 20:02] LABS: Creatine Kinase MB 2.2 ng/mL (0.0-4.0)
[2022-01-06 20:06] LABS: Alanine Aminotransferase 13 units/L (7-56); Albumin 4.9 g/dL (3.9-5); BUN/Creatinine Ratio 18; Blood Urea Nitrogen 18 mg/dL (7-17); Calcium 10.2 mg/dL (8.4-10.2); Hemolysis Index 4
[2022-01-07] MEDS: HEPARIN 5,000 UNIT/1 ML VIAL SUB-Q SCH ×2 (00:16→11:11)
[2022-01-07] MEDS: FAMOTIDINE 10 MG TAB PO SCH ×2 (00:17→11:12)
[2022-01-07] MEDS: ACETAMINOPHEN 325 MG TAB PO PRN ×2 (04:18→13:33)
[2022-01-07 06:52] LABS: Chol/HDL Ratio 2.6 %
[2022-01-07 09:06] VITALS: BP 151/59
--- NOTE | 2022-01-07 11:44 | Magnetic Resonance Report ---
MRI BRAIN WITHOUT CONTRAST INDICATION / CLINICAL INFORMATION: stroke-right facial numbness. TECHNIQUE: Multisequence, multiplanar images were obtained. COMPARISON: MR brain dated 03/20/2020. CT head dated 12/07/2021. FINDINGS: CEREBRAL and CEREBELLAR HEMISPHERES: No evidence of mass or mass effect. No midline shift. No acute hemorrhage. No diffusion restriction to suggest acute infarct. No extra-axial fluid collection. VENTRICLES: Normal in size and configuration for age. VISUALIZED ORBITS: No significant abnormality. VISUALIZED PARANASAL SINUSES: No significant abnormality. ADDITIONAL FINDINGS: None. IMPRESSION: 1. No acute intracranial abnormality. No evidence for acute ischemia, hemorrhage or focal mass. Signer Name: Abiodun Riley Jr, MD Signed: 01/07/2022 11:39 AM Workstation Name: [id number]
--- NOTE | 2022-01-07 15:51 | Consultation ---
History of Present Illness Consult date: 01/07/22 Reason for Consult: CVA Chief complaint: Transient difficulty getting words out with right lateral hand numbness History of present illness: 71 yo female with htn, dyslipidemia, tia x 2 (most recent on december 02, 2021; both tia events with similar symptoms with speech +/- right-sided numbness; occurs usually in the afternoon), who p/w a transient episode from 12 pm to ~3 pm yesterday with left-sided headache with right 3rd thru 5th digit(s) numbness with difficulty "thinking of the words" and getting the words out. She notes that she takes her bp meds in the morning around 11 am. Notes occassional light-headedness. Notes a chronic "sore throat" that ENT has not been able to diagnose/treat for the last few months, otherwise denies any other symptoms. Notes a trip to [facility] is coming up on January 22 this year. Past History Past Medical History: hypertension, hyperlipidemia, other (tia) Past Surgical History: Other (per hpi;) Social history: no significant social history Family history: no significant family history Medications and Allergies Allergies Allergy/AdvReac Type Severity Reaction Status Date / Time codeine Allergy HALLUCINATI Verified 03/24/20 07:50 ONS lisinopril AdvReac Unknown Verified 03/24/20 07:50 Home Medications Medication Instructions Recorded Confirmed Last Taken Type Aspirin EC [Halfprin EC] 81 mg PO QDAY #60 tablet. 03/20/20 01/07/22 1 Day Ago Rx ~01/06/22 Losartan [Cozaar] 100 mg PO QDAY #30 tablet 03/20/20 01/07/22 1 Day Ago Rx ~01/06/22 Pitavastatin Calcium [LiVALO] 1 tab PO DAILY 01/07/22 01/07/22 1 Day Ago History ~01/06/22 amLODIPine [Norvasc] 20 mg PO DAILY 01/07/22 01/07/22 1 Day Ago History ~01/06/22 Active Meds: Active Medications Acetaminophen (Acetaminophen 325 Mg Tab) 650 mg PO Q4H PRN PRN Reason: Pain MILD(1-3)/Fever >100.5/BRIONES Last Admin: 01/07/22 13:33 Dose: 650 mg Aspirin (Aspirin Ec 81 Mg Tab) 81 mg PO QDAY [facility] Clopidogrel Bisulfate (Clopidogrel 75 Mg Tab) 75 mg PO QDAY [facility] Stop: 04/09/22 23:59 Famotidine (Famotidine 10 Mg Tab) 10 mg PO BID [facility] Last Admin: 01/07/22 11:12 Dose: Not Given Heparin Sodium (Porcine) (Heparin 5,000 Unit/1 Ml Vial) 5,000 unit SUB-Q Q12HR [facility] Last Admin: 01/07/22 11:11 Dose: 5,000 unit Sodium Chloride (Nacl 0.9% 1000 Ml) 1,000 mls @ 42 mls/hr IV DIRECT [facility] Metoclopramide HCl (Metoclopramide 10 Mg/2 Ml Inj) 10 mg IV Q6H PRN PRN Reason: Nausea And Vomiting Morphine Sulfate (Morphine 2 Mg/1 Ml Inj) 2 mg IV Q4H PRN PRN Reason: Pain, Moderate (4-6) Ondansetron HCl (Ondansetron 4 Mg/2 Ml Inj) 4 mg IV Q8H PRN PRN Reason: Nausea And Vomiting Oxycodone/Acetaminophen (Oxycodone /Acetaminophen 5-325mg Tab) 1 tab PO Q6H PRN PRN Reason: Pain, Moderate (4-6) Sodium Chloride (Sodium Chloride 0.9% 10 Ml Flush Syringe) 10 ml IV BID [facility] Last Admin: 01/07/22 11:12 Dose: Not Given Sodium Chloride (Sodium Chloride 0.9% 10 Ml Flush Syringe) 10 ml IV PRN PRN PRN Reason: LINE FLUSH Review of Systems All systems: negative (as per hpi;) Physical Examination - Vital Signs Vital Signs: Vital Signs Temp Pulse Resp BP Pulse Ox 98.0 F 70 22 143/81 99 01/06/22 16:14 01/06/22 16:14 01/06/22 16:14 01/06/22 16:14 01/06/22 16:14 - Physical Exam Narrative exam: Gen: nad, well-nourished; Head: normocephalic; Eyes: no gaze deviation; no ptosis; ENT: normal vocalization; CVS: warm and well-perfused; Pulm: no respiratory distress; GI: appears non-distended; Ext: no cyanosis appreciated at distal extremities; Skin: no acute rash at distal extremities; Heme: no pathologic ecchymosis appreciated at distal extremities; Neuro: alert, oriented to name, age, month, year, surroundings, no dysarthria, no aphasia, CN 2 - PERRL, visual palacio grossly intact, CN 3, 4, 6 - EOMI, CN 5 - facial sensation symmetric to light touch, CN 7 - facial movement symmetric, CN 8 - hearing grossly intact, CN 9, 10 - uvula midline, CN 11 symmetric shoulder movement, CN 12 - tongue midline; Motor - at least 4+/5 at all exts; Sensory - light touch symmetric, Cerebellar - fnf /hts intact, Gait - deferred secondary to fall risk; NIHSS (1a.) Level of Consciousness:0 (1b.) LOC Questions:0 (1c.) LOC Commands:0 (2.) Best Gaze:0 (3.) Visual:0 (4.) Facial Palsy:0 (5a.) Motor Arm, Left:0 (5b.) Motor Arm, Right:0 (6a.) Motor Leg, Left:0 (6b.) Motor Leg, Right:0 (7.) Limb Ataxia:0 (8.) Sensory:0 (9.) Best Language:0 (10.) Dysarthria:0 (11.) Extinction and Inattention:0 NIHSS Total Score: 0 Results - Laboratory Findings CBC and BMP: 01/06/22 19:17 01/06/22 19:17 Abnormal Lab Findings: Abnormal Labs 01/06/22 01/06/22 01/06/22 16:25 19:17 19:17 MCH 27 L Lymph # (Auto) 1.0 L Seg Neutrophils % 73.5 H BUN Glucose POC Glucose 106 H Total Creatine Kinase 169 H HDL Cholesterol Ur Specific [place] 01/06/22 01/06/22 01/07/22 19:17 Unknown 05:49 MCH Lymph # (Auto) Seg Neutrophils % BUN 18 H Glucose 108 H POC Glucose Total Creatine Kinase HDL Cholesterol 61 H Ur Specific [place] 1.044 H Assessment and Plan 71 yo female with htn, dyslipidemia, tia x 2 (most recent on december 02, 2021; both tia events with similar symptoms with speech +/- right-sided numbness; occurs usually in the afternoon), who p/w a transient episode from 12 pm to ~3 pm yesterday with left-sided headache with right 3rd thru 5th digit(s) numbness with difficulty "thinking of the words" and getting the words out. TIA Mechanism: labile bp + intracranial atherosclerotic dx PLAN 1. TIA : enteric-coated ASA 81 mg PO qday; Plavix 75 mg PO qday x90 days; unremarkable MRI Brain w/o contrast, no severe stenosis or occlusion on CTA Head/Neck w/ & w/o contrast, normal TTEcho; aim for LDL <80 (pt notes failing multiple statins except pitavastatin); confirm TSH/Covid-19, NIHSS q8 hours; aim for stable normotension. Statin therapy for a goal LDL of 70, when patient passes swallow evaluation. PT/OT/ST/Swallow evaluation. Long-term risk-factor modification, including a strict diet/exercise regimen for secondary stroke pro phylaxis. Stroke education prior to discharge. 2. Left-sided Headache - no hx of migraine; atypical for headache to persist s/p symptoms; if headache persists or is progressive, needs to be seen by Neurology within 2 weeks of return from [facility]. 3. Hypertension - aim for stable normotension (sbp 115-135 mmHg); recommended bp journal. 4. Dyslipidemia - goal LDL of 70 w/ pitavastatin (prescribed by cardiology) therapy if no contraindications. 5. Persistent Sore Throat - consider 2nd opinion from another ENT physician. Edilson Carrasco MD Neurology [id number]
--- NOTE | 2022-01-07 16:14 | Discharge Summary ---
Providers - Providers Date of Admission: 01/06/22 19:33 Date of discharge: 01/07/22 Attending physician: CLEMENTE PÉREZ 01/06/22 19:33 Consult to Physician [CONS] Routine Comment: Consulting Provider: GALO CARRASCO Physician Instructions: Reason For Exam: CVA 01/06/22 19:39 Occupational Therapy Evaluate and Treat [CONS] Routine Comment: Reason For Exam: Neuro deficits Physical Therapy Evaluation and Treat [CONS] Routine Comment: Reason For Exam: Neuro deficits Primary care physician: BROADCAST OPERATIONS ENGINEER Hospitalization Condition: Serious Pertinent studies: MRI brain No acute intracranial abnormality. 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 Neck Head CTA discontinued developmental hypoplasia of the distal left vertebral artery. There is no clear CT evidence of developing large vessel occlusion amenable to endovascular treatment correlation with needed in this patient with given history of unspecified stroke symptoms. Hospital course: 71 yo female with htn, dyslipidemia, tia x 2 (most recent on december 02, 2021; both tia events with similar symptoms with speech +/- right-sided numbness; occurs usually in the afternoon), who p/w a transient episode from 12 pm to ~3 pm yesterday with left-sided headache with right 3rd thru 5th digit(s) numbness with difficulty "thinking of the words" and getting the words out. She notes that she takes her bp meds in the morning around 11 am. Notes occassional light-headedness. Notes a chronic "sore throat" that ENT has not been able to diagnose/treat for the last few months, otherwise denies any other symptoms. Notes a trip to [facility] is coming up on January 22 this year. 01/07/[address] 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--hence multiple TIAs in the past Per his recommendation to continue aspirin and Plavix for at least 6 months to 1 year and follow-up with neurology as outpatient Assessment and Plan Advance Directives: Yes (Full code) VTE prophylaxis?: Chemical Plan of care discussed with patient/family: Yes - Patient Problems (1) TIA (transient ischemic attack) Current Visit: Yes Status: Acute Plan to address problem: Recommended Plavix and aspirin for 6 months to 1 year Prescription given (2) HTN (hypertension) Current Visit: Yes Status: Chronic Qualifiers: Hypertension type: primary hypertension Qualified Code(s): I10 - Essential (primary) hypertension Plan to address problem: Continue antihypertensives and adjust medications (3) T2DM (type 2 diabetes mellitus) Current Visit: Yes Status: Chronic Qualifiers: Diabetes mellitus intermediate insulin use: unspecified medical terminologist insulin use status Plan to address problem: Coverage for now Check hemoglobin A1c (4) Dyslipidemia Current Visit: Yes Status: Chronic Plan to address problem: Patient started on statins (5) DVT prophylaxis Current Visit: No Status: Acute Plan to address problem: On heparin and GI prophylaxis Disposition: 01 HOME / SELF CARE / HOMELESS Final Discharge Diagnosis (Prints w/discharge instructions): TIA. Hypertension. IDDM. Dyslipidemia Time spent for discharge: 35 minutes - Discharge Diagnoses (1) TIA (transient ischemic attack) Status: Acute (2) HTN (hypertension) Status: Chronic Qualifiers: Hypertension type: primary hypertension Qualified Code(s): I10 - Essential (primary) hypertension (3) T2DM (type 2 diabetes mellitus) Status: Chronic Qualifiers: Diabetes mellitus intermediate insulin use: unspecified intermediate insulin use status (4) Dyslipidemia Status: Chronic (5) DVT prophylaxis Status: Acute (6) Advance care planning Status: Acute Core Measure Documentation - Palliative Care Palliative Care/ Comfort Measures: Not Applicable - Core Measures Any of the following diagnoses?: none Exam - Constitutional Vitals: Temp Pulse Resp BP Pulse Ox 98.1 F 62 18 151/59 99 01/07/22 08:24 01/07/22 08:58 01/07/22 03:42 01/07/22 08:24 01/07/22 08:59 General appearance: Present: no acute distress, well-nourished - EENT Eyes: Present: PERRL ENT: hearing intact, clear oral mucosa - Neck Neck: Present: supple, normal ROM - Respiratory Respiratory effort: normal Respiratory: bilateral: CTA - Cardiovascular Rhythm: regular Heart Sounds: Present: S1 & S2. Absent: rub, click - Extremities Extremities: no ischemia (76), pulses intact, pulses symmetrical, No edema Peripheral Pulses: within normal limits - Abdominal General gastrointestinal: Present: soft, non-tender, non-distended, normal bowel sounds Female genitourinary: Present: normal - Integumentary Integumentary: Present: clear, warm, dry - Musculoskeletal Musculoskeletal: gait normal, strength equal bilaterally - Psychiatric Psychiatric: appropriate mood/affect, intact judgment & insight - Neurologic Neurologic: CNII-XII intact, moves all extremities Plan Diet: low cholesterol, low salt Follow up with: PRIMARY CARE, [Primary Care Provider] - 7 Days THAO FUNES MD [Staff Physician] - 7 Days
--- NOTE | 2022-01-08 08:52 | Electrocardiograph Report ---
[facility] Test Date: 2022-01-06 Test Time: 16:30:05 Pat Name: BOB KO Department: Room: A480 1 Gender: F Junior Systems Analyst: ERIKA : 1950 Requested By: CATHY BUI Order Number: [id number] Reading MD: Henry Torres Measurements Intervals Lee Rate: 52 P: 49 IL: 157 QRS: 13 QRSD: 89 T: 28 QT: 479 QTc: 448 Interpretive Statements Sinus rhythm Probable left atrial enlargement nonsspecific st-t Compared to ECG 11/28/2021 23:17:11 Sinus bradycardia no longer present Electronically Signed On 01-08-2022 8:51:38 EDT by Henry Torres
[2022-01-08] MEDS ORDERED: ASPIRIN EC 81 MG TAB PO SCH (10:00)
[2022-01-08] MEDS ORDERED: CLOPIDOGREL 75 MG TAB PO SCH (10:00)
== END 2022-01-07 17:10 | disposition home or self-care (01) ==
LOC: ED 16:11 → INTOOBSV 19:33 → 4A 19:33
PROVIDERS: ADMIT Internal Medicine; ATTEND Internal Medicine
DX: G45.9 Transient cerebral ischemic attack, unspecified (principal); I10 Essential (primary) hypertension; E11.9 Type 2 diabetes mellitus without complications; E78.5 Hyperlipidemia, unspecified; J02.9 Acute pharyngitis, unspecified; R29.700 NIHSS score 0; R51.9 Headache, unspecified; Z79.82 Long term (current) use of aspirin; Z86.73 Personal history of transient ischemic attack (TIA), and cerebral infarction without residual deficits; Z90.49 Acquired absence of other specified parts of digestive tract; Z79.899 Other long term (current) drug therapy; Z98.51 Tubal ligation status; Z90.710 Acquired absence of both cervix and uterus; Z98.890 Other specified postprocedural states
CPT/HCPCS: 36415; 70450; 70496; 70498; 70551; 71045; 80053; 80061; 81001; 82550; 82553; 82962; 84484; 85025; 85610; 85670; 85730; 93005; 96372; 97161; 97166; 99291; C8929; G0378; J1644; Q9967; 93306